=== PATIENT | male | born 1965 | race Hispanic/Latino ===

== ENCOUNTER → 2020-01-09 | Outpatient (CLI) | payer OTHER, MEDICARE | END | disposition home or self-care (01) | LOC: RAH 08:28 | PROVIDERS: ATTEND Internal Medicine Gastroenterology | DX: K76.0 Fatty (change of) liver, not elsewhere classified (principal); R16.0 Hepatomegaly, not elsewhere classified; K76.9 Liver disease, unspecified | CPT/HCPCS: 76700; 93975 ==

== ENCOUNTER → 2020-06-10 | Outpatient (CLI) | payer OTHER, MEDICARE | END | disposition home or self-care (01) | LOC: RAH 10:33 | PROVIDERS: ATTEND Internal Medicine Gastroenterology | DX: Z11.2 Encounter for screening for other bacterial diseases (principal); R10.12 Left upper quadrant pain | CPT/HCPCS: 78264; A9541 ==

== ENCOUNTER 2020-07-11 13:16 | Emergency (ER) | payer OTHER, MEDICARE ==
[2020-07-11 14:07] LABS: BASOPHILS % (AUTO) 0.3 % (0.0-5.0); EOSINOPHILS % (AUTO) 0.3 % (0.0-8.0); HEMATOCRIT 36.5 % (42-54); LYMPHOCYTES % (AUTO) 10.4 % (21.0-51.0); MEAN CORPUSCULAR HEMOGLOBIN 29.3 pg (27.0-33.0); MEAN CORPUSCULAR VOLUME 86.3 fL (79-99); MONOCYTES % (AUTO) 4.4 % (3.0-13.0); PLATELET COUNT (AUTO) 194 K/uL (130-400); RED BLOOD CELL COUNT(AUTO) 4.23 MIL/uL (4.50-6.20); RED CELL DISTRIBUTION WIDTH 13.3 % (11.0-15.5)
[2020-07-11] MEDS ORDERED: DiphenhydrAMINE HCL 50 MG/ML VIAL ONE (14:10)
[2020-07-11] MEDS ORDERED: KETOROLAC 30MG VIAL (30MG/ML) ONE (14:11)
[2020-07-11] MEDS ORDERED: PROCHLORPERAZINE 10MG/2ML INJ ONE (14:11)
[2020-07-11 14:33] LABS: PROTHROMBIN TIME 10.7 SEC (9.6-11.6)
[2020-07-11 14:34] LABS: PARTIAL THROMBOPLASTIN TIME 26.4 SEC (26.3-35.5)
[2020-07-11 14:36] LABS: B-TYPE NATRIURETIC PEPTIDE 17 pg/mL (0-100)
[2020-07-11 14:53] LABS: ALBUMIN 2.8 g/dL (3.5-5.0); BILIRUBIN,TOTAL 0.2 mg/dL (0.2-1.0); CREATININE 1.9 mg/dL (0.5-1.5); POTASSIUM 4.6 mmol/L (3.5-5.1); TOTAL PROTEIN, SERUM 6.8 g/dL (6.0-8.3)
[2020-07-11] MEDS ORDERED: 0.9% NACL 250ML 500 ML IV ONE (15:12)
== END 2020-07-11 16:11 | disposition home or self-care (01) ==
LOC: EDH 13:16
DX: I10 Essential (primary) hypertension (principal); G43.909 Migraine, unspecified, not intractable, without status migrainosus; E11.9 Type 2 diabetes mellitus without complications; E78.5 Hyperlipidemia, unspecified; Z88.6 Allergy status to analgesic agent; Z88.8 Allergy status to other drugs, medicaments and biological substances
CPT/HCPCS: 36415; 70450; 71045; 80053; 83690; 83880; 84484; 85025; 85610; 85730; 93005; 96374; 96375; 99285; J0780; J1200; J1885; J7050

== ENCOUNTER 2022-08-08 07:03 | Day surgery (SDC) | payer OTHER, MEDICARE ==
[2022-08-03 10:24] LABS: BASOPHILS % (AUTO) 0.4 % (0.0-5.0); EOSINOPHILS % (AUTO) 0.6 % (0.0-8.0); HEMATOCRIT 32.7 % (42-54); LYMPHOCYTES % (AUTO) 17.4 % (21.0-51.0); MEAN CORPUSCULAR HEMOGLOBIN 32.2 pg (27.0-33.0); MEAN CORPUSCULAR HGB CONC 34.9 g/dL (32.0-36.0); MEAN CORPUSCULAR VOLUME 92.4 fL (79-99); MONOCYTES % (AUTO) 5.3 % (3.0-13.0); NEUTROPHILS % (AUTO) 75.7 % (40.0-77.0); PLATELET COUNT (AUTO) 167 K/uL (130-400); RED BLOOD CELL COUNT(AUTO) 3.54 MIL/uL (4.50-6.20); RED CELL DISTRIBUTION WIDTH 13.6 % (11.0-15.5); WHITE BLOOD COUNT (AUTO) 8.5 K/uL (4.8-10.8)
[2022-08-03 10:34] LABS: INR 0.93 (0.85-1.15)
[2022-08-03 10:36] LABS: PARTIAL THROMBOPLASTIN TIME 27.9 SEC (26.3-35.5)
[2022-08-03 10:39] VITALS: BP 219/107
[~2022-08-08] VITALS: Ht 177.8 cm; Wt 120.8 kg
[2022-08-08] VITALS (19 sets, daily range): BP systolic 166–189; BP diastolic 94–105
[~2022-08-08 07:03] MED LIST: CETI10TA57 PO; CITA-107 PO; FINA5TAB41 PO; GABA300C PO; INSU100I15 SQ; INSU100V37 SQ; MECL-160 PO; METO25 PO; OMEP40CA21 PO; ONDA4TAB10 PO; SEVE800T27 PO; VITAMIN D PO; ZOLP5TAB8 PO
[2022-08-08] MEDS ORDERED: 0.9% NACL 500ML IV.SOLN 500 ML IV ONE (07:30)
[2022-08-08] MEDS: CEFAZOLIN SODIUM 2 GM VIAL IVPB PRN ×2 (07:46→08:25)
[2022-08-08 07:55] LABS: CREATININE 3.7 mg/dL (0.5-1.5); POTASSIUM 3.9 mmol/L (3.5-5.1)
[2022-08-08] MEDS ORDERED: SUCCINYLCHOLINE CHLORIDE 20 MG/ML 10 ML VIAL ONE (08:19)
[2022-08-08] MEDS ORDERED: ROCURONIUM 10MG/1ML SYR 10 MG/ML ML ONE (08:20)
[2022-08-08] MEDS ORDERED: FENTANYL CITRATE PF 50 MCG/1 ML 2ML VIAL ONE (08:20)
[2022-08-08] MEDS ORDERED: PROPOFOL 10 MG/ML 20ML VIAL IV ONE (08:20)
[2022-08-08] MEDS ORDERED: MIDAZOLAM HCL 1 MG/ML 2ML VIAL ONE (08:20)
[2022-08-08] MEDS ORDERED: PHENYLEPHRINE HCL 10 MG/ML 1ML VIAL IV ONE (08:50)
[2022-08-08] MEDS ORDERED: EPHEDRINE SULFATE 50 MG/ML AMPULE ONE (09:13)
[2022-08-08] MEDS ORDERED: LABETALOL 20MG SYG IV ONE (10:27)
== END 2022-08-08 11:40 | disposition home or self-care (01) ==
LOC: DAH 07:03
PROVIDERS: ATTEND Student in an Organized Health Care Education/Training Program
DX: I12.0 Hypertensive chronic kidney disease with stage 5 chronic kidney disease or end stage renal disease (principal); E11.22 Type 2 diabetes mellitus with diabetic chronic kidney disease; N18.6 End stage renal disease; E78.00 Pure hypercholesterolemia, unspecified; Z88.8 Allergy status to other drugs, medicaments and biological substances; Z79.4 Long term (current) use of insulin; Z79.899 Other long term (current) drug therapy; Z98.890 Other specified postprocedural states; Z20.822 Contact with and (suspected) exposure to COVID-19
CPT/HCPCS: 85025; 85610; 85730; 86850; 86900; 86901; 87426; 36415 ×2; 71045; 93005; 36821; 80048; 82948 ×2; A6260; A4663; J7040; J3010; J0330; J3490; J2250; J2704; J2370; J0690; G0168; A4649 ×2; C1713 ×2; A4215; A4223; A4222; A4221

== ENCOUNTER 2023-03-26 04:33 | Observation (INO) | payer OTHER, MEDICARE ==
[2023-03-26] VITALS (14 sets, daily range): BP systolic 117–179; BP diastolic 71–85; PULSE 74–88; RESP 14–24; TEMP 97.9–98; O2SAT 98
[~2023-03-26] VITALS: Ht 152.4 cm; Wt 117.9 kg
[~2023-03-26 04:33] MED LIST changes: -MECL-160 PO; +MECL-302 PO
[2023-03-26] MEDS ORDERED: HYDRALAZINE 20MG/ML VIAL ONE (04:58)
[2023-03-26] MEDS ORDERED: HYDRALAZINE 20MG/ML VIAL IV ONE (05:00)
[2023-03-26 05:32] LABS: BASOPHILS # (AUTO) 0.04 K/uL (0.00-0.20); BASOPHILS % (AUTO) 0.4 % (0.0-5.0); CREATININE 6.8 mg/dL (0.5-1.5); EOSINOPHILS # (AUTO) 0.07 K/uL (0.00-0.70); EOSINOPHILS % (AUTO) 0.7 % (0.0-8.0); HEMATOCRIT 25.8 % (42-54); IMMATURE GRANULOCYTE ABSOLUTE 0.04 K/uL (0-1); LYMPHOCYTES # (AUTO) 2.2 K/uL (1.0-4.8); LYMPHOCYTES % (AUTO) 21.8 % (21.0-51.0); MEAN CORPUSCULAR HEMOGLOBIN 31.9 pg (27.0-33.0); MEAN CORPUSCULAR HGB CONC 35.3 g/dL (32.0-36.0); MEAN CORPUSCULAR VOLUME 90.5 fL (79-99); MONOCYTES # (AUTO) 0.5 K/uL (0.1-1.0); MONOCYTES % (AUTO) 5.1 % (3.0-13.0); NEUTROPHILS # (AUTO) 7.2 K/uL (1.8-7.7); NEUTROPHILS % (AUTO) 71.6 % (40.0-77.0); PLATELET COUNT (AUTO) 164 K/uL (130-400); POTASSIUM 3.9 mmol/L (3.5-5.1); RED BLOOD CELL COUNT(AUTO) 2.85 MIL/uL (4.50-6.20); RED CELL DISTRIBUTION WIDTH 12.7 % (11.0-15.5)
[2023-03-26 05:37] LABS: ALBUMIN 2.9 g/dL (3.5-5.0); BILIRUBIN,TOTAL 0.4 mg/dL (0.2-1.0); TOTAL PROTEIN, SERUM 7.5 g/dL (6.0-8.3)
[2023-03-26 05:43] LABS: SARS-CoV-2, RNA, NAAT NEGATIVE SARS CoV-2 (NEGATIVE)
[2023-03-26 05:45] LABS: INR 1.64 (0.85-1.15); PROTHROMBIN TIME 18.4 SEC (9.6-11.6)
[2023-03-26 05:46] LABS: INFLUENZA TYPE A Negative For Type A (NEGATIVE); INFLUENZA TYPE B Negative For Type B (NEGATIVE)
[2023-03-26 05:48] LABS: B-TYPE NATRIURETIC PEPTIDE 260 pg/mL (0-100)
[2023-03-26 07:06] LABS: ADD UA MICROSCOPIC YES
[2023-03-26] MEDS ORDERED: HYDRALAZINE 20MG/ML VIAL IV PRN (07:30)
[2023-03-26 08:07] LABS: APPEARANCE,URINE CLEAR (CLEAR); BILIRUBIN,URINE NEGATIVE (NEGATIVE); COLOR,URINE LIGHT-YELLOW (YELLOW); GLUCOSE, URINE (UA) 200 mg/dL (NEGATIVE); KETONES,URINE NEGATIVE (NEGATIVE); LEUKOCYTE ESTERASE ,URINE NEGATIVE Leu/uL (NEGATIVE); NITRATE,URINE NEGATIVE (NEGATIVE); OCCULT BLOOD,URINE MODERATE (NEGATIVE); PH,URINE 7.5 (5.0-8.0); PROTEIN,URINE 600 mg/dL (NEGATIVE); UROBILINOGEN,URINE 0.2 mg/dL (0.2-1.0)
[2023-03-26 08:08] LABS: RBC,URINE 0-1 /HPF (0-1); SQUAMOUS EPITHELIAL CELL,UR RARE /HPF (0-2); WBC,URINE 0-1 /HPF (0-1)
[2023-03-26] MEDS: METOPROLOL TARTRATE 25 MG TAB PO SCH ×2 (08:31→21:27)
[2023-03-26] MEDS: LOSARTAN 50 MG TABLET PO SCH ×2 (08:31→21:27)
[2023-03-26] MEDS ORDERED: SEMA1PEN3 SQ (09:23)
[2023-03-26] MEDS ORDERED: FINA-37 PO (09:23)
[2023-03-26] MEDS ORDERED: LACT10SO9 PO (09:23)
[2023-03-26] MEDS ORDERED: ROSU10TA22 PO (09:23)
[2023-03-26] MEDS ORDERED: LOSA50TA64 PO (09:23)
[2023-03-26] MEDS ORDERED: INSU100V37 SQ (09:23)
[2023-03-26] MEDS: INSULIN HUMULIN R 100 UNIT/ML 3ML SQ SCH ×3 (10:50→21:28)
[2023-03-26] MEDS: INSULIN GLARGINE 100 UNITS/ML 10 ML VIAL SQ SCH (10:53)
[2023-03-26 11:28] LABS: INR < 0.93 (0.85-1.15); PROTHROMBIN TIME 10.7 SEC (9.6-11.6)
[2023-03-26 11:29] LABS: PARTIAL THROMBOPLASTIN TIME 28.9 SEC (26.3-35.5)
[2023-03-27] VITALS (19 sets, daily range): BP systolic 86–266; BP diastolic 57–87; PULSE 79–90; RESP 17–22; TEMP 98.7–98.8; O2SAT 97
[2023-03-27 05:14] LABS: HEMATOCRIT 24.4 % (42-54); MEAN CORPUSCULAR HEMOGLOBIN 32.6 pg (27.0-33.0); MEAN CORPUSCULAR HGB CONC 35.7 g/dL (32.0-36.0); MEAN CORPUSCULAR VOLUME 91.4 fL (79-99); RED BLOOD CELL COUNT(AUTO) 2.67 MIL/uL (4.50-6.20); RED CELL DISTRIBUTION WIDTH 12.9 % (11.0-15.5); WHITE BLOOD COUNT (AUTO) 8.8 K/uL (4.8-10.8)
[2023-03-27 05:25] LABS: CREATININE 6.7 mg/dL (0.5-1.5); POTASSIUM 4.2 mmol/L (3.5-5.1)
[2023-03-27 05:38] LABS: ALBUMIN 2.6 g/dL (3.5-5.0); BILIRUBIN,TOTAL 0.4 mg/dL (0.2-1.0); PHOSPHORUS 7.2 mg/dL (2.5-4.9); THYROID STIMULATING HORMONE 1.68 uIU/mL (0.36-3.74); TOTAL PROTEIN, SERUM 6.6 g/dL (6.0-8.3); URIC ACID 4.8 mg/dL (2.6-7.2)
[2023-03-27] MEDS: INSULIN HUMULIN R 100 UNIT/ML 3ML SQ SCH ×3 (05:54→17:01)
[2023-03-27] MEDS ORDERED: CETIRIZINE HCL 5 MG TABLET PO SCH (09:00)
[2023-03-27] MEDS ORDERED: Vitamin B Complex/Vit C/Folic Acid PO SCH (09:00)
[2023-03-27] MEDS: INSULIN GLARGINE 100 UNITS/ML 10 ML VIAL SQ SCH (09:00)
[2023-03-27] MEDS ORDERED: NON-FORMULARY MEDICATION 1 EACH (Omeprazole 40 MG) PO SCH (09:00)
[2023-03-27] MEDS ORDERED: LACTULOSE 20 GM/30 ML UDCUP PO PRN (12:00)
[2023-03-27 12:23] LABS: RETICULOCYTE % (AUTO) 2.22 % (0.42-2.23)
[2023-03-27] MEDS ORDERED: IRON SUCROSE COMPLEX 500 MG in 0.9%NACL 50ML 50 ML IV ONE (12:30)
[2023-03-27] MEDS ORDERED: EPOETIN ALFA-EPBX (NON-ESRD) 10,000 UNIT/ML VIAL SQ ONE ×2 (12:30→17:00)
[2023-03-27 12:42] LABS: % IRON SATURATION 26.1 % (30-44)
[2023-03-27] MEDS ORDERED: ROSU20TA73 PO (12:42)
[2023-03-27] MEDS ORDERED: INSU100I15 SQ (12:42)
[2023-03-27] MEDS: SEVELAMER HCL 800 MG TABLET PO SCH ×2 (14:00→14:19)
[2023-03-27] MEDS: LOSARTAN 50 MG TABLET PO SCH (14:16)
[2023-03-27] MEDS: METOPROLOL TARTRATE 25 MG TAB PO SCH (14:16)
[2023-03-27 15:48] LABS: HEPATITIS B SURFACE ANTIGEN Non-Reactive (Nonreactive)
[2023-03-27] MEDS ORDERED: GABAPENTIN 300 MG CAPSULE PO SCH (21:00)
[2023-03-27] MEDS ORDERED: NON-FORMULARY MEDICATION 1 EACH (Cetirizine HCl 10 MG) PO SCH (21:00)
[2023-03-27] MEDS ORDERED: ROSUVASTATIN CALCIUM 15 MG PO SCH (21:00)
[2023-03-27] MEDS ORDERED: ATORVASTATIN 20 MG TABLET PO SCH (21:00)
[2023-03-28] MEDS ORDERED: FINASTERIDE 5 MG TABLET PO SCH (09:00)
[2023-03-28] MEDS ORDERED: IRON SUCROSE COMPLEX 500 MG in 0.9% NACL 250ML 250 ML IVP SCH (09:00)
== END 2023-03-27 19:47 | disposition home or self-care (01) ==
LOC: EDH 04:33 → INTOOBSV 07:19 → EDHIP 07:19 → 2AH 17:32
PROVIDERS: ADMIT Internal Medicine; ATTEND Internal Medicine
DX: I16.0 Hypertensive urgency (principal); Z20.822 Contact with and (suspected) exposure to COVID-19; E87.70 Fluid overload, unspecified; I13.2 Hypertensive heart and chronic kidney disease with heart failure and with stage 5 chronic kidney disease, or end stage renal disease; I50.9 Heart failure, unspecified; E11.22 Type 2 diabetes mellitus with diabetic chronic kidney disease; N18.6 End stage renal disease; I25.10 Atherosclerotic heart disease of native coronary artery without angina pectoris; J81.1 Chronic pulmonary edema; E78.5 Hyperlipidemia, unspecified; D50.9 Iron deficiency anemia, unspecified; N40.0 Benign prostatic hyperplasia without lower urinary tract symptoms; D68.9 Coagulation defect, unspecified; R79.89 Other specified abnormal findings of blood chemistry; N25.81 Secondary hyperparathyroidism of renal origin; E66.01 Morbid (severe) obesity due to excess calories; Z68.39 Body mass index [BMI] 39.0-39.9, adult; Z88.5 Allergy status to narcotic agent; Z88.8 Allergy status to other drugs, medicaments and biological substances; Z79.4 Long term (current) use of insulin; Z99.2 Dependence on renal dialysis; Z79.899 Other long term (current) drug therapy; Z98.890 Other specified postprocedural states
CPT/HCPCS: 96374; 93005; 99285; 83036; 84443 ×2; 82550; 84484 ×3; 80053 ×2; 83880; 85025; 85384; 85610 ×2; 85730 ×2; 87804 ×2; 82948 ×7; 86706; 87340; 81001; 36415 ×2; 87635; 71045; 90935 ×2; 96372; 83540; 83550; 84100; 84550; 82728; 85027; 85045; 82607; 82746; 93306; 93356; C9803; J0360; G0378 ×6; Q5106; J1756; J7050; G0257

== ENCOUNTER 2023-08-27 19:09 | Inpatient (IN) | payer OTHER, MEDICARE ==
[~2023-08-27] VITALS: Ht 177.8 cm; Wt 122.0 kg
[~2023-08-27 19:09] MED LIST changes: +AMLO5TAB4 PO; +HYDR25 PO; +LACT10SO9 PO; +LOSA50TA64 PO; +MECL-160 PO; -MECL-302 PO; +ROSU20TA73 PO; +SEMA1PEN3 SQ
[2023-08-27 19:43] LABS: BASOPHILS # (AUTO) 0.04 K/uL (0.00-0.20); BASOPHILS % (AUTO) 0.4 % (0.0-5.0); EOSINOPHILS # (AUTO) 0.02 K/uL (0.00-0.70); EOSINOPHILS % (AUTO) 0.2 % (0.0-8.0); HEMATOCRIT 24.7 % (42-54); IMMATURE GRANULOCYTE ABSOLUTE 0.04 K/uL (0-1); LYMPHOCYTES # (AUTO) 0.6 K/uL (1.0-4.8); LYMPHOCYTES % (AUTO) 7.2 % (21.0-51.0); MEAN CORPUSCULAR HEMOGLOBIN 34.4 pg (27.0-33.0); MEAN CORPUSCULAR HGB CONC 34.8 g/dL (32.0-36.0); MEAN CORPUSCULAR VOLUME 98.8 fL (79-99); MONOCYTES # (AUTO) 0.4 K/uL (0.1-1.0); MONOCYTES % (AUTO) 4.5 % (3.0-13.0); NEUTROPHILS # (AUTO) 7.8 K/uL (1.8-7.7); NEUTROPHILS % (AUTO) 87.3 % (40.0-77.0); PLATELET COUNT (AUTO) 133 K/uL (130-400); RED CELL DISTRIBUTION WIDTH 13.3 % (11.0-15.5)
[2023-08-27 20:01] LABS: POTASSIUM 4.8 mmol/L (3.5-5.1)
[2023-08-27 20:02] LABS: COVID19 (SARS ANTIGEN RAPID) PRESUMPTIVE NEGATIVE (NEGATIVE); INFLUENZA TYPE A Negative For Type A (NEGATIVE); INFLUENZA TYPE B Negative For Type B (NEGATIVE)
[2023-08-27 20:04] LABS: CREATININE 8.7 mg/dL (0.5-1.5)
[2023-08-27 21:38] LABS: INR <= 0.93 (0.85-1.15); PROTHROMBIN TIME 10.7 SEC (9.6-11.6)
[2023-08-27 21:40] LABS: PARTIAL THROMBOPLASTIN TIME 28.7 SEC (26.3-35.5)
[2023-08-28] VITALS (60 sets, daily range): BP systolic 129–165; BP diastolic 59–88; PULSE 77–90; RESP 4–29; TEMP 98.2–98.3; O2SAT 97–99
[2023-08-28] MEDS ORDERED: ACETAMINOPHEN 325 MG TAB PO PRN ×2
[2023-08-28] MEDS ORDERED: ONDANSETRON 4MG INJ IV PRN
[2023-08-28] MEDS: NITROGLYCERIN 1GM OINT 1 INCH/1GM TD SCH (01:29)
[2023-08-28] MEDS: IPRATROPIUM/ALBUTEROL SULFATE 3 ML SOLUTION IH SCH (01:59)
[2023-08-28 03:13] LABS: APPEARANCE,URINE CLEAR (CLEAR); BILIRUBIN,URINE NEGATIVE (NEGATIVE); COLOR,URINE LIGHT-YELLOW (YELLOW); GLUCOSE, URINE (UA) TRACE mg/dL (NEGATIVE); KETONES,URINE NEGATIVE (NEGATIVE); LEUKOCYTE ESTERASE ,URINE NEGATIVE Leu/uL (NEGATIVE); NITRATE,URINE NEGATIVE (NEGATIVE); OCCULT BLOOD,URINE SMALL (NEGATIVE); PH,URINE 7.5 (5.0-8.0); PROTEIN,URINE 300 mg/dL (NEGATIVE); UROBILINOGEN,URINE 0.2 mg/dL (0.2-1.0)
[2023-08-28 03:16] LABS: ADD UA MICROSCOPIC YES
[2023-08-28] MEDS: HYDRALAZINE 20MG/ML VIAL IV PRN (03:46)
[2023-08-28 06:23] LABS: BASOPHILS # (AUTO) 0.04 K/uL (0.00-0.20); BASOPHILS % (AUTO) 0.5 % (0.0-5.0); EOSINOPHILS # (AUTO) 0.05 K/uL (0.00-0.70); EOSINOPHILS % (AUTO) 0.6 % (0.0-8.0); IMMATURE GRANULOCYTE ABSOLUTE 0.04 K/uL (0-1); LYMPHOCYTES # (AUTO) 1.6 K/uL (1.0-4.8); MEAN CORPUSCULAR HEMOGLOBIN 33.1 pg (27.0-33.0); MEAN CORPUSCULAR HGB CONC 33.8 g/dL (32.0-36.0); MONOCYTES # (AUTO) 0.5 K/uL (0.1-1.0); MONOCYTES % (AUTO) 5.2 % (3.0-13.0); NEUTROPHILS # (AUTO) 6.5 K/uL (1.8-7.7); NEUTROPHILS % (AUTO) 75.2 % (40.0-77.0); PLATELET COUNT (AUTO) 155 K/uL (130-400); RED BLOOD CELL COUNT(AUTO) 2.45 MIL/uL (4.50-6.20); RED CELL DISTRIBUTION WIDTH 13.2 % (11.0-15.5); WHITE BLOOD COUNT (AUTO) 8.6 K/uL (4.8-10.8)
[2023-08-28 06:29] LABS: HEMOGLOBIN A1C 6.6 % (4.0-6.0)
[2023-08-28] MEDS ORDERED: FURO80TA3 PO (06:35)
[2023-08-28] MEDS ORDERED: METO25TA6 PO (06:35)
[2023-08-28 06:59] LABS: ALBUMIN 2.9 g/dL (3.5-5.0); BILIRUBIN,TOTAL 0.4 mg/dL (0.2-1.0); MAGNESIUM 1.8 mg/dL (1.80-2.40); POTASSIUM 4.8 mmol/L (3.5-5.1); TOTAL PROTEIN, SERUM 6.8 g/dL (6.0-8.3)
[2023-08-28 07:06] LABS: CREATININE 9.4 mg/dL (0.5-1.5)
[2023-08-28] MEDS ORDERED: MECLIZINE HCL 25 MG TABLET PO PRN (09:00)
[2023-08-28] MEDS: FINASTERIDE 5 MG TABLET PO SCH (09:15)
[2023-08-28] MEDS: FAMOTIDINE 20MG TAB PO SCH (09:15)
[2023-08-28] MEDS: ASPIRIN 81 MG EC TAB PO SCH (09:15)
[2023-08-28] MEDS: SEVELAMER HCL 800 MG TABLET PO SCH (09:15)
[2023-08-28] MEDS ORDERED: DEXTROSE 50%-WATER 50 ML DISP.SYRIN IV PRN (13:00)
[2023-08-28] MEDS ORDERED: GLUCAGON 1MG KIT 1 MG ML IM PRN (13:00)
[2023-08-28] MEDS: LOSARTAN 50 MG TABLET PO SCH (13:06)
[2023-08-28] MEDS: METOPROLOL TARTRATE 25 MG TAB PO SCH (13:06)
[2023-08-28] MEDS: AMLODIPINE 5 MG TAB PO SCH (13:06)
[2023-08-28] MEDS: HYDRALAZINE 25MG TABLET PO SCH (13:07)
[2023-08-28] MEDS: CLOPIDOGREL 75MG TAB PO SCH (15:45)
[2023-08-28] MEDS: INSULIN HUMULIN R 100 UNIT/ML 3ML SQ SCH (15:47)
[2023-08-28 17:04] LABS: HEPATITIS B SURFACE ANTIGEN Non-Reactive (Nonreactive)
[2023-08-28] MEDS: CETIRIZINE HCL 5 MG TABLET PO SCH (21:07)
[2023-08-28] MEDS: GABAPENTIN 300 MG CAPSULE PO SCH (21:08)
[2023-08-28] MEDS: ATORVASTATIN 40 MG TABLET PO SCH (21:08)
[2023-08-28] MEDS: IRON SUCROSE COMPLEX 300 MG in 0.9% NACL 250ML 250 ML IV ONE (21:26)
[2023-08-28] MEDS ORDERED: COMPOUND IV REFRIGERATED 1 EACH IVSOLN MISC PRN (21:30)
[2023-08-28] MEDS: EPOETIN ALFA-EPBX (NON-ESRD) 10,000 UNIT/ML VIAL SQ SCH (22:00)
[2023-08-29] VITALS (15 sets, daily range): BP systolic 119–152; BP diastolic 64–89; PULSE 71–88; RESP 17–20; O2SAT 97–100
[2023-08-29] MEDS ORDERED: FUROSEMIDE 80 MG TABLET PO SCH (09:00)
[2023-08-29 12:22] LABS: HEPATITIS B SURFACE ANTIBODY Positive (Reactive)
[2023-08-29 12:23] LABS: HEPATITIS B CORE AB TOTAL Non-Reactive (Nonreactive)
[2023-08-30] VITALS (24 sets, daily range): BP systolic 119–168; BP diastolic 67–91; PULSE 71–89; RESP 17–20; TEMP 97.5–97.8; O2SAT 98–100
[2023-08-30 05:18] LABS: BASOPHILS # (AUTO) 0.05 K/uL (0.00-0.20); BASOPHILS % (AUTO) 0.7 % (0.0-5.0); EOSINOPHILS # (AUTO) 0.07 K/uL (0.00-0.70); EOSINOPHILS % (AUTO) 0.9 % (0.0-8.0); HEMATOCRIT 22.4 % (42-54); IMMATURE GRANULOCYTE ABSOLUTE 0.02 K/uL (0-1); LYMPHOCYTES # (AUTO) 1.7 K/uL (1.0-4.8); MEAN CORPUSCULAR HEMOGLOBIN 33.6 pg (27.0-33.0); MEAN CORPUSCULAR HGB CONC 33.9 g/dL (32.0-36.0); MEAN CORPUSCULAR VOLUME 99.1 fL (79-99); MONOCYTES # (AUTO) 0.4 K/uL (0.1-1.0); MONOCYTES % (AUTO) 5.7 % (3.0-13.0); NEUTROPHILS # (AUTO) 5.2 K/uL (1.8-7.7); NEUTROPHILS % (AUTO) 69.4 % (40.0-77.0); PLATELET COUNT (AUTO) 143 K/uL (130-400); RED BLOOD CELL COUNT(AUTO) 2.26 MIL/uL (4.50-6.20); RED CELL DISTRIBUTION WIDTH 13.2 % (11.0-15.5); WHITE BLOOD COUNT (AUTO) 7.4 K/uL (4.8-10.8)
[2023-08-30 05:35] LABS: MAGNESIUM 1.9 mg/dL (1.80-2.40); PHOSPHORUS 7.3 mg/dL (2.5-4.9); POTASSIUM 4.7 mmol/L (3.5-5.1)
[2023-08-30] MEDS: REGADENOSON 0.4 MG/5 ML PF SYG IVP SCH (07:00)
== END 2023-08-30 18:56 | disposition home or self-care (01) | DRG 205 ==
LOC: EDH 19:09 → EDHIP 23:43 → 2BH 08-28 05:24 → 3DH 08-28 17:30
PROVIDERS: ADMIT Hospitalist; ATTEND Hospitalist
PROC: 5A1D70Z Performance of Urinary Filtration, Intermittent, Less than 6 Hours Per Day (ICD-10-PCS; 2023-08-28)
PROC: 4A02XM4 Measurement of Cardiac Total Activity, External Approach (ICD-10-PCS; principal; 2023-08-29)
PROC: 3E073KZ Introduction of Other Diagnostic Substance into Coronary Artery, Percutaneous Approach (ICD-10-PCS; 2023-08-29)
PROC: 5A1D70Z Performance of Urinary Filtration, Intermittent, Less than 6 Hours Per Day (ICD-10-PCS; 2023-08-30)
DX: M94.0 Chondrocostal junction syndrome [Tietze] (principal); N18.6 End stage renal disease; I12.0 Hypertensive chronic kidney disease with stage 5 chronic kidney disease or end stage renal disease; R06.02 Shortness of breath; R07.89 Other chest pain; I25.10 Atherosclerotic heart disease of native coronary artery without angina pectoris; D63.1 Anemia in chronic kidney disease; J45.909 Unspecified asthma, uncomplicated; E78.00 Pure hypercholesterolemia, unspecified; Z20.822 Contact with and (suspected) exposure to COVID-19; E11.22 Type 2 diabetes mellitus with diabetic chronic kidney disease; Z99.2 Dependence on renal dialysis; Z80.8 Family history of malignant neoplasm of other organs or systems; Z82.49 Family history of ischemic heart disease and other diseases of the circulatory system; Z86.73 Personal history of transient ischemic attack (TIA), and cerebral infarction without residual deficits; Z87.01 Personal history of pneumonia (recurrent); Z83.3 Family history of diabetes mellitus; Z82.3 Family history of stroke; Z82.5 Family history of asthma and other chronic lower respiratory diseases
CPT/HCPCS: 36415; 71045; 78452; 80048; 80053; 80061; 81001; 82550; 82948; 83036; 83735; 83880; 84100; 84484; 85025; 85610; 85730; 86704; 86706; 87340; 87426; 87804; 87880; 90935; 93005; 93017; 93306; 94640; 94664; 96374; A9500; G0378; J0360; J1756; J2785; J7050; Q5106

== ENCOUNTER → 2023-10-06 | Outpatient (CLI) | payer OTHER, MEDICARE ==
[~2023-10-06] MED LIST changes: +FURO80TA3 PO; -MECL-160 PO; +MECL-302 PO; -METO25 PO; +METO25TA6 PO
[2023-10-06 10:41] LABS: CREATININE 8.9 mg/dL (0.5-1.3)
== END | disposition home or self-care (01) ==
LOC: RAH 07:52
PROVIDERS: ATTEND Internal Medicine Interventional Cardiology
DX: I65.23 Occlusion and stenosis of bilateral carotid arteries (principal); M54.41 Lumbago with sciatica, right side
CPT/HCPCS: 36415; 72100; 82565; 84520

== ENCOUNTER → 2023-10-10 | Outpatient (CLI) | payer OTHER, MEDICARE ==
[~2023-10-10] MED LIST changes: +ALPR0.5T11 PO; +ASPI-1005 PO; +CLOP75TA32 PO; +DICY20TA3 PO; +FOLI0.4T6 PO; +GABA-534 PO; +HYDR50TA37 PO; +IOHEXOL-350 75 ML VIAL IV ONE; +METO50TA18 PO; +ONDA-243 PO; -ONDA4TAB10 PO; +ROSU40TA70 PO; +TERB250T89 PO; +TIRZ7.5P SQ
== END | disposition home or self-care (01) ==
LOC: RAH 08:52
PROVIDERS: ATTEND Internal Medicine Cardiovascular Disease
DX: I65.23 Occlusion and stenosis of bilateral carotid arteries (principal); M47.812 Spondylosis without myelopathy or radiculopathy, cervical region
CPT/HCPCS: 70498; Q9967

== ENCOUNTER 2023-10-31 10:22 | Observation (INO) | payer OTHER, MEDICARE ==
[~2023-10-31] VITALS: Ht 170.2 cm; Wt 122.8 kg
[~2023-10-31 10:22] MED LIST changes: -ALPR0.5T11 PO; -ASPI-1005 PO; -CLOP75TA32 PO; -DICY20TA3 PO; -FOLI0.4T6 PO; -GABA-534 PO; -HYDR50TA37 PO; -IOHEXOL-350 75 ML VIAL IV ONE; -METO50TA18 PO; -ONDA-243 PO; +ONDA4TAB10 PO; -ROSU40TA70 PO; -TERB250T89 PO; -TIRZ7.5P SQ
[2023-10-31 11:21] LABS: BASOPHILS # (AUTO) 0.04 K/uL (0.00-0.20); BASOPHILS % (AUTO) 0.5 % (0.0-5.0); EOSINOPHILS # (AUTO) 0.03 K/uL (0.00-0.70); EOSINOPHILS % (AUTO) 0.4 % (0.0-8.0); HEMATOCRIT 25.1 % (42-54); IMMATURE GRANULOCYTE ABSOLUTE 0.04 K/uL (0-1); LYMPHOCYTES # (AUTO) 0.6 K/uL (1.0-4.8); LYMPHOCYTES % (AUTO) 7.2 % (21.0-51.0); MEAN CORPUSCULAR HEMOGLOBIN 32.9 pg (27.0-33.0); MEAN CORPUSCULAR HGB CONC 33.5 g/dL (32.0-36.0); MEAN CORPUSCULAR VOLUME 98.4 fL (79-99); MONOCYTES # (AUTO) 0.5 K/uL (0.1-1.0); NEUTROPHILS % (AUTO) 85.4 % (40.0-77.0); PLATELET COUNT (AUTO) 114 K/uL (130-400); RED BLOOD CELL COUNT(AUTO) 2.55 MIL/uL (4.50-6.20); RED CELL DISTRIBUTION WIDTH 13.3 % (11.0-15.5); WHITE BLOOD COUNT (AUTO) 8.2 K/uL (4.8-10.8)
[2023-10-31 11:27] LABS: CREATININE 7.1 mg/dL (0.5-1.3); INR <= 0.93 (0.85-1.15); POTASSIUM 5.1 mmol/L (3.5-5.1); PROTHROMBIN TIME 10.9 SEC (9.6-11.6)
[2023-10-31 11:29] LABS: PARTIAL THROMBOPLASTIN TIME 29.1 SEC (26.3-35.5)
[2023-10-31 11:32] LABS: BILIRUBIN,TOTAL 0.5 mg/dL (0.2-1.0); TOTAL PROTEIN, SERUM 6.8 g/dL (6.0-8.3)
[2023-10-31] MEDS ORDERED: ACETAMINOPHEN 500 MG TABLET PO PRN (13:30)
[2023-10-31] MEDS ORDERED: IOHEXOL-350 75 ML VIAL IV ONE (13:33)
[2023-10-31] MEDS ORDERED: METO50TA18 PO (14:54)
[2023-10-31] MEDS ORDERED: ROSU40TA21 PO (14:54)
[2023-10-31] MEDS ORDERED: IPRATROPIUM/ALBUTEROL SULFATE 3 ML SOLUTION IH PRN (15:30)
[2023-10-31 16:13] VITALS: PULSE 74; RESP 18; O2SAT 98
[2023-10-31] MEDS: INSULIN HUMULIN R 100 UNIT/ML 3ML SQ SCH (16:28)
[2023-10-31] MEDS: METOPROLOL TARTRATE 50 MG TAB PO SCH (21:11)
[2023-10-31] MEDS: ATORVASTATIN 40 MG TABLET PO SCH (21:11)
[2023-10-31] MEDS: LOSARTAN 50 MG TABLET PO SCH (21:11)
[2023-10-31 23:30] VITALS: BP 155/73; PULSE 74; RESP 18
[2023-11-01] VITALS (23 sets, daily range): BP systolic 124–160; BP diastolic 66–78; PULSE 71–91; RESP 16–20; TEMP 97.5–97.8; O2SAT 97–98
[2023-11-01] MEDS ORDERED: GLUCAGON 1MG KIT 1 MG ML IM PRN (07:00)
[2023-11-01] MEDS ORDERED: DEXTROSE 50%-WATER 50 ML DISP.SYRIN IV PRN (07:00)
[2023-11-01 07:10] LABS: BASOPHILS # (AUTO) 0.02 K/uL (0.00-0.20); BASOPHILS % (AUTO) 0.3 % (0.0-5.0); EOSINOPHILS # (AUTO) 0.04 K/uL (0.00-0.70); EOSINOPHILS % (AUTO) 0.5 % (0.0-8.0); HEMATOCRIT 24.3 % (42-54); IMMATURE GRANULOCYTE ABSOLUTE 0.03 K/uL (0-1); LYMPHOCYTES # (AUTO) 0.9 K/uL (1.0-4.8); MEAN CORPUSCULAR HEMOGLOBIN 33.6 pg (27.0-33.0); MEAN CORPUSCULAR HGB CONC 32.9 g/dL (32.0-36.0); MEAN CORPUSCULAR VOLUME 102.1 fL (79-99); MONOCYTES # (AUTO) 0.6 K/uL (0.1-1.0); MONOCYTES % (AUTO) 7.5 % (3.0-13.0); NEUTROPHILS # (AUTO) 5.9 K/uL (1.8-7.7); NEUTROPHILS % (AUTO) 79.3 % (40.0-77.0); PLATELET COUNT (AUTO) 97 K/uL (130-400); RED BLOOD CELL COUNT(AUTO) 2.38 MIL/uL (4.50-6.20); RED CELL DISTRIBUTION WIDTH 13.2 % (11.0-15.5); WHITE BLOOD COUNT (AUTO) 7.5 K/uL (4.8-10.8)
[2023-11-01 07:21] LABS: POTASSIUM 5.6 mmol/L (3.5-5.1)
[2023-11-01 07:29] LABS: CREATININE 8.5 mg/dL (0.5-1.3)
[2023-11-01] MEDS: ASPIRIN 81MG CHEW TAB PO SCH (09:36)
[2023-11-01] MEDS ORDERED: EPOETIN ALFA-EPBX (NON-ESRD) 10,000 UNIT/ML VIAL SQ ONE (10:30)
[2023-11-01] MEDS ORDERED: ASPI-1005 PO (12:54)
[2023-11-02 22:55] LABS: HEPATITIS B CORE AB TOTAL Non-Reactive (Nonreactive); HEPATITIS B SURFACE ANTIBODY Positive (Reactive); HEPATITIS B SURFACE ANTIGEN Non-Reactive (Nonreactive)
== END 2023-11-01 18:14 | disposition home or self-care (01) ==
LOC: EDH 10:22 → INTOOBSV 12:51 → EDHIP 12:51 → 2AH 23:03
PROVIDERS: ADMIT Internal Medicine; ATTEND Internal Medicine
DX: R55 Syncope and collapse (principal); R20.0 Anesthesia of skin; I12.0 Hypertensive chronic kidney disease with stage 5 chronic kidney disease or end stage renal disease; E11.22 Type 2 diabetes mellitus with diabetic chronic kidney disease; N18.6 End stage renal disease; E87.5 Hyperkalemia; I25.10 Atherosclerotic heart disease of native coronary artery without angina pectoris; D69.6 Thrombocytopenia, unspecified; E78.5 Hyperlipidemia, unspecified; R79.89 Other specified abnormal findings of blood chemistry; J45.909 Unspecified asthma, uncomplicated; Z88.5 Allergy status to narcotic agent; Z88.8 Allergy status to other drugs, medicaments and biological substances; Z79.4 Long term (current) use of insulin; Z99.2 Dependence on renal dialysis
CPT/HCPCS: 70450; 99285; 83036; 84443; 84484 ×3; 80053; 85025 ×2; 85610; 85730; 82948 ×8; 83605; 36415 ×2; 71045; 70496; 70498; 93356; 93308; 70551; 97161; 97530 ×2; 92522; 92610; 93005; 80048; 86706; 87340; 86704; 97116; 90935; Q9967; G0378 ×2; Q5106; G0257

== ENCOUNTER 2024-03-16 02:35 | Observation (INO) | payer OTHER, MEDICARE ==
[2024-03-16] VITALS (15 sets, daily range): BP systolic 135–173; BP diastolic 72–89; PULSE 78–88; RESP 16–20; TEMP 97.6–98.1; O2SAT 95–98
[~2024-03-16] VITALS: Ht 177.8 cm; Wt 119.3 kg
[~2024-03-16 02:35] MED LIST changes: +ACET-66 PO; +ALPR0.5T11 PO; -AMLO5TAB4 PO; +ATOR40TA69 PO; +BACL10TA PO; +BISA-189 PO; +CARV6.25 PO; +CYCL10TA16 PO; +DICY20TA3 PO; +DOCU100T PO; +FOLATE PO; +FOLI0.4T6 PO; +FOLI0.8T22 PO; +GABA-534 PO; -GABA300C PO; -HYDR25 PO; +HYDR50TA37 PO; +METH4TAB15 PO; -METO25TA6 PO; +METO50TA18 PO; +ONDA-243 PO; -ONDA4TAB10 PO; -ROSU20TA73 PO; +SACU1TAB PO; -SEMA1PEN3 SQ; +TAMS-1 PO; +TERB250T89 PO; +TIRZ7.5P SQ
[2024-03-16 03:18] LABS: CREATININE 5.9 mg/dL (0.5-1.3)
[2024-03-16 03:19] LABS: BASOPHILS # (AUTO) 0.04 K/uL (0.00-0.20); BASOPHILS % (AUTO) 0.5 % (0.0-5.0); EOSINOPHILS # (AUTO) 0.07 K/uL (0.00-0.70); EOSINOPHILS % (AUTO) 0.9 % (0.0-8.0); HEMATOCRIT 28.8 % (42-54); IMMATURE GRANULOCYTE ABSOLUTE 0.03 K/uL (0-1); LYMPHOCYTES # (AUTO) 0.7 K/uL (1.0-4.8); LYMPHOCYTES % (AUTO) 9.9 % (21.0-51.0); MEAN CORPUSCULAR HEMOGLOBIN 31.9 pg (27.0-33.0); MEAN CORPUSCULAR VOLUME 96.6 fL (79-99); MONOCYTES # (AUTO) 0.6 K/uL (0.1-1.0); MONOCYTES % (AUTO) 7.4 % (3.0-13.0); NEUTROPHILS % (AUTO) 80.9 % (40.0-77.0); PLATELET COUNT (AUTO) 142 K/uL (130-400); RED BLOOD CELL COUNT(AUTO) 2.98 MIL/uL (4.50-6.20); RED CELL DISTRIBUTION WIDTH 16.8 % (11.0-15.5); WHITE BLOOD COUNT (AUTO) 7.4 K/uL (4.8-10.8)
[2024-03-16] MEDS: acetaMINOPHEN 500 MG TABLET PO ONE (04:26)
[2024-03-16] MEDS: HYDROcodone/APAP 5/325 1 TAB TABLET PO ONE (05:01)
[2024-03-16] MEDS ORDERED: NITROGLYCERIN 0.4 MG SL TAB SL PRN (05:30)
[2024-03-16] MEDS ORDERED: GLUCAGON 1MG KIT 1 MG ML IM PRN (05:30)
[2024-03-16] MEDS ORDERED: DEXTROSE 50%-WATER 50 ML DISP.SYRIN IV PRN (05:30)
[2024-03-16] MEDS ORDERED: ondanSETRON 4MG INJ IV PRN (05:30)
[2024-03-16] MEDS ORDERED: acetaMINOPHEN 325 MG TAB PO PRN (05:30)
[2024-03-16] MEDS: hydrALAZine 20MG/ML VIAL IV PRN (06:40)
[2024-03-16] MEDS: INSULIN humuLIN R 100 UNIT/ML 3ML SQ SCH (07:30)
[2024-03-16] MEDS: FAMOTIDINE 20MG TAB PO SCH (08:02)
[2024-03-16 08:07] LABS: BASOPHILS # (AUTO) 0.04 K/uL (0.00-0.20); BASOPHILS % (AUTO) 0.5 % (0.0-5.0); EOSINOPHILS # (AUTO) 0.07 K/uL (0.00-0.70); EOSINOPHILS % (AUTO) 0.9 % (0.0-8.0); HEMATOCRIT 30.5 % (42-54); IMMATURE GRANULOCYTE ABSOLUTE 0.03 K/uL (0-1); LYMPHOCYTES # (AUTO) 0.9 K/uL (1.0-4.8); MEAN CORPUSCULAR HEMOGLOBIN 31.6 pg (27.0-33.0); MEAN CORPUSCULAR HGB CONC 32.1 g/dL (32.0-36.0); MEAN CORPUSCULAR VOLUME 98.4 fL (79-99); MONOCYTES # (AUTO) 0.5 K/uL (0.1-1.0); MONOCYTES % (AUTO) 6.9 % (3.0-13.0); NEUTROPHILS % (AUTO) 79.3 % (40.0-77.0); PLATELET COUNT (AUTO) 139 K/uL (130-400); RED CELL DISTRIBUTION WIDTH 16.7 % (11.0-15.5); WHITE BLOOD COUNT (AUTO) 7.5 K/uL (4.8-10.8)
[2024-03-16 09:19] LABS: ERYTHROCYTE SEDIMENTATION RATE 29 MM/HR (0-20)
[2024-03-16 09:21] LABS: HEMOGLOBIN A1C 5.6 % (4.0-6.0)
[2024-03-16] MEDS: acetaMINOPHEN 325 MG TAB PO PRN (09:26)
[2024-03-16] MEDS: 0.9%NACL 1000ML 1,000 ML IV SCH (11:50)
[2024-03-16] MEDS ORDERED: METO25TA6 PO (12:09)
[2024-03-16] MEDS ORDERED: ALPR0.5T8 PO (12:09)
[2024-03-16] MEDS ORDERED: LOSA50TA64 PO (12:09)
[2024-03-16] MEDS ORDERED: DOCU100C33 PO (12:09)
[2024-03-16] MEDS ORDERED: MECL-302 PO (12:09)
[2024-03-16] MEDS ORDERED: CETI10TA57 PO (12:09)
[2024-03-16] MEDS ORDERED: HYDR50TA37 PO (12:09)
[2024-03-16] MEDS ORDERED: GABA300S3 PO (12:09)
[2024-03-16] MEDS ORDERED: OMEP40CA21 PO (12:09)
[2024-03-16] MEDS ORDERED: SEVE800T27 PO (12:13)
[2024-03-16] MEDS ORDERED: mecliZINE HCL 25 MG TABLET PO PRN (13:30)
[2024-03-16] MEDS ORDERED: ALPRAZolam 0.5 MG TABLET PO PRN (13:30)
[2024-03-16] MEDS: hydrALAZine 25MG TABLET PO SCH (14:00)
[2024-03-16] MEDS: metoPROLOL tartRATE 25 MG TAB PO SCH (14:00)
[2024-03-16] MEDS ORDERED: metoPROLOL tartRATE 25 MG TAB PO SCH (14:00)
[2024-03-16] MEDS: ondanSETRON 4MG INJ IV PRN (14:38)
[2024-03-16] MEDS: sevELAMer HCL 800 MG TABLET PO SCH (17:51)
[2024-03-16] MEDS: doCUSate SODIUM 100 MG CAP PO SCH (20:57)
[2024-03-16] MEDS: BACLOFEN 10 MG TABLET PO SCH (20:57)
[2024-03-16] MEDS: BisaCODYL 5 MG TABLET.DR PO SCH (20:57)
[2024-03-16] MEDS: ondanSETRON ODT 4MG TAB PO SCH (20:58)
[2024-03-16] MEDS: atorVAStatin 40 MG TABLET PO SCH (20:58)
[2024-03-16] MEDS: GABAPENTIN 300 MG CAPSULE PO SCH (20:58)
[2024-03-16] MEDS ORDERED: BisaCODYL 5 MG TABLET.DR PO SCH (21:00)
[2024-03-17 00:13] VITALS: BP 134/62; PULSE 78; RESP 20; TEMP 98.1
[2024-03-17 00:16] VITALS: BP 130/75; PULSE 79; RESP 20; TEMP 98.1
[2024-03-17 00:19] VITALS: BP 143/80; PULSE 82; RESP 20; TEMP 98.1
[2024-03-17 04:00] VITALS: BP 136/66; PULSE 73; RESP 20; TEMP 98.3
[2024-03-17 05:09] LABS: BASOPHILS # (AUTO) 0.04 K/uL (0.00-0.20); BASOPHILS % (AUTO) 0.5 % (0.0-5.0); EOSINOPHILS # (AUTO) 0.07 K/uL (0.00-0.70); EOSINOPHILS % (AUTO) 0.9 % (0.0-8.0); HEMATOCRIT 31.4 % (42-54); IMMATURE GRANULOCYTE ABSOLUTE 0.03 K/uL (0-1); LYMPHOCYTES # (AUTO) 0.9 K/uL (1.0-4.8); LYMPHOCYTES % (AUTO) 11.5 % (21.0-51.0); MEAN CORPUSCULAR HEMOGLOBIN 31.4 pg (27.0-33.0); MEAN CORPUSCULAR HGB CONC 31.8 g/dL (32.0-36.0); MEAN CORPUSCULAR VOLUME 98.7 fL (79-99); MONOCYTES # (AUTO) 0.6 K/uL (0.1-1.0); MONOCYTES % (AUTO) 7.9 % (3.0-13.0); NEUTROPHILS # (AUTO) 6.1 K/uL (1.8-7.7); NEUTROPHILS % (AUTO) 78.8 % (40.0-77.0); PLATELET COUNT (AUTO) 152 K/uL (130-400); RED BLOOD CELL COUNT(AUTO) 3.18 MIL/uL (4.50-6.20); RED CELL DISTRIBUTION WIDTH 16.4 % (11.0-15.5); WHITE BLOOD COUNT (AUTO) 7.7 K/uL (4.8-10.8)
[2024-03-17 06:54] LABS: ALBUMIN 3.4 g/dL (3.5-5.0); BILIRUBIN,TOTAL 0.5 mg/dL (0.2-1.0); MAGNESIUM 1.9 mg/dL (1.80-2.40); POTASSIUM 5.5 mmol/L (3.5-5.1); TOTAL PROTEIN, SERUM 7.7 g/dL (6.0-8.3)
[2024-03-17 08:00] VITALS: BP 147/72; PULSE 75; RESP 18; TEMP 98.3; O2SAT 98
[2024-03-17] MEDS ORDERED: tamSULOsin HCL 0.4 MG CAP.ER.24H PO SCH (09:00)
[2024-03-17] MEDS ORDERED: carVEDIlol 6.25 MG TABLET PO SCH (09:00)
[2024-03-17] MEDS ORDERED: NON-FORMULARY MEDICATION 1 EACH (Folic Acid/Vitamin B Comp W-C (Rena-Vite Tablet) 0.8 MG) PO SCH (09:00)
[2024-03-17] MEDS ORDERED: doCUSate SODIUM 100 MG CAP PO SCH (09:00)
[2024-03-17] MEDS: ceTIRIzine HCL 5 MG TABLET PO SCH (09:09)
[2024-03-17] MEDS: furoSEMIDE 80 MG TABLET PO SCH (09:09)
[2024-03-17] MEDS: PANTOPrazole 40 MG TAB DR PO SCH (09:10)
[2024-03-17] MEDS: Vitamin B Complex/Vit C/Folic Acid PO SCH (09:11)
[2024-03-17] MEDS: SACUBITRIL/VALSARTAN 1 EACH TABLET PO SCH (09:11)
[2024-03-17] MEDS: LoSARTan 50 MG TABLET PO SCH (09:11)
[2024-03-17] MEDS: tamSULOsin HCL 0.4 MG CAP.ER.24H PO SCH (09:12)
[2024-03-17] MEDS: FOLATE 666 MCG PO SCH (09:14)
[2024-03-17 11:48] VITALS: BP_SYST 138; BP_SYST 144; BP_SYST 148; BP_DIAS 68; BP_DIAS 69; BP_DIAS 82; PULSE 74; RESP 18; TEMP 98.1
[2024-03-17] MEDS: sevELAMer HCL 800 MG TABLET PO SCH (12:18)
[2024-03-17] MEDS: NA ZIRCON CYCLOSIL(LOKELMA 10GM) PO ONE (12:19)
[2024-03-17] MEDS ORDERED: sevELAMer HCL 800 MG TAB PO (12:21)
== END 2024-03-17 13:30 | disposition home or self-care (01) ==
LOC: EDH 02:35 → EDHIP 05:28 → 4DH 08:39
PROVIDERS: ADMIT Internal Medicine; ATTEND Internal Medicine
DX: S86.912A Strain of unspecified muscle(s) and tendon(s) at lower leg level, left leg, initial encounter (principal); S80.212A Abrasion, left knee, initial encounter; R79.89 Other specified abnormal findings of blood chemistry; I12.0 Hypertensive chronic kidney disease with stage 5 chronic kidney disease or end stage renal disease; E11.22 Type 2 diabetes mellitus with diabetic chronic kidney disease; N18.6 End stage renal disease; E87.70 Fluid overload, unspecified; D63.1 Anemia in chronic kidney disease; E87.1 Hypo-osmolality and hyponatremia; E11.649 Type 2 diabetes mellitus with hypoglycemia without coma; I65.29 Occlusion and stenosis of unspecified carotid artery; E78.5 Hyperlipidemia, unspecified; M25.552 Pain in left hip; E66.01 Morbid (severe) obesity due to excess calories; E87.5 Hyperkalemia; K21.9 Gastro-esophageal reflux disease without esophagitis; I44.4 Left anterior fascicular block; I44.0 Atrioventricular block, first degree; I25.10 Atherosclerotic heart disease of native coronary artery without angina pectoris; Z88.5 Allergy status to narcotic agent; Z88.8 Allergy status to other drugs, medicaments and biological substances; Z79.4 Long term (current) use of insulin; Z91.199 Patient's noncompliance with other medical treatment and regimen due to unspecified reason; Z99.2 Dependence on renal dialysis; Z68.37 Body mass index [BMI] 37.0-37.9, adult; W19.XXXA Unspecified fall, initial encounter; Y93.89 Activity, other specified; Y92.098 Other place in other non-institutional residence as the place of occurrence of the external cause; Y99.8 Other external cause status
CPT/HCPCS: 96374; 96361; 96375; 93005; 99285; 83036; 84443; 82550; 84484 ×2; 80048; 83880; 85025 ×3; 85651; 82948 ×9; 36415 ×2; 73070; 73502; 73562; 73030; 70450; 72125; 72131; 72128; 90935; 83735; 80053; 97161; 97116; 97530; G0378 ×29; J0360; J2405; G0257

== ENCOUNTER 2024-08-04 15:07 | Emergency (ER) | payer OTHER, MEDICARE ==
[~2024-08-04] VITALS: Ht 177.8 cm; Wt 122.5 kg
[~2024-08-04 15:07] MED LIST changes: -ACET-66 PO; -ALPR0.5T11 PO; +ALPR0.5T8 PO; -CITA-107 PO; -CYCL10TA16 PO; -DICY20TA3 PO; +DOCU100C33 PO; -FINA5TAB41 PO; -FOLI0.4T6 PO; -GABA-534 PO; +GABA300S3 PO; -INSU100I15 SQ; -INSU100V37 SQ; -LACT10SO9 PO; -METH4TAB15 PO; +METO25TA6 PO; -METO50TA18 PO; -TERB250T89 PO; -TIRZ7.5P SQ; -VITAMIN D PO; -ZOLP5TAB8 PO; +sevELAMer HCL 800 MG TAB PO
--- NOTE | 2024-08-04 15:30 | ERN ---
ED Note History of Present Illness Stated Complaint: COUGH Chief Complaint: Congestion Time Seen by MD: 15:11 Dictation: Patient is a 59-year-old male with a past medical history of diabetes mellitus, end-stage renal disease on hemodialysis Monday who presented to the ER complaining of chest congestion, cough with phlegm, also subjective fever. He reports symptoms started 3 days ago. Allergies: Coded Allergies: liraglutide (Unverified Allergy, Unknown, 07/11/20) tramadol (Unverified Allergy, Unknown, 07/11/20) hydromorphone (Unverified Adverse Reaction, Mild, NAUSEA, 03/05/24) Home Meds Active Scripts [sevELAMer HCL 800 MG TAB] 800 MG/TAB TABLET No Conflict Check, 2400 MG PO TIDMEALS, #60 TAB 0 Refills Prov:VERNELLYOLILiamCHATO B SUPPLY CHAIN MANAGER 03/17/24 Reported Medications Sevelamer HCl (Sevelamer HCl) 800 Mg Tablet, 800 MG PO TIDMEALS, TAB TAKE 3 TABLETS 03/16/24 Docusate Sodium (Docusate Sodium) 100 Mg Capsule, 100 MG PO BID, CAP 03/16/24 Bisacodyl (Dulcolax 5Mg Tab) 5 Mg Tablet.dr, 5 MG PO HS, TAB 03/16/24 Hydralazine HCl (Hydralazine HCl) 50 Mg Tablet, 50 MG PO TID, TAB 03/16/24 Meclizine HCl (Meclizine HCl) 25 Mg Tablet, 25 MG PO HSPRN PRN for DIZZINESS, TAB 03/16/24 Metoprolol Tartrate (Metoprolol Tartrate) 25 Mg Tablet, 25 MG PO TID, TAB 03/16/24 Omeprazole (Omeprazole) 40 Mg Capsule.dr, 40 MG PO AM, CAP 03/16/24 Tamsulosin HCl (Flomax) 0.4 Mg Cap.er.24h, 0.4 MG PO DAILY, CAPSULE.DR 03/16/24 Cetirizine HCl (Cetirizine HCl) 10 Mg Tablet, 10 MG PO DAILY, TAB 03/16/24 Losartan Potassium (Losartan Potassium) 50 Mg Tablet, 50 MG PO DAILY, TAB 03/16/24 Gabapentin (Gabapentin) 300 Mg/6 Ml (6 Ml) Solution, 300 MG PO BID, ML 03/16/24 Alprazolam (Alprazolam) 0.5 Mg Tablet, 0.5 MG PO BID PRN for ANXIETY/AGITATION, TAB 03/16/24 Folic Acid/Vitamin B Comp W-C (Alize-Walt Tablet) 0.8 Mg Tablet, 0.8 MG PO DAILY, TAB 03/16/24 Ondansetron (Ondansetron Odt) 4 Mg Tab.rapdis, 4 MG PO BID for 3 Days, TAB 03/05/24 Folic Acid/Vitamin B Comp W-C (Alize-Walt Tablet) 0.8 Mg Tablet, 0.8 MG PO DAILY, TAB 03/05/24 [Folate] No Conflict Check, 666 MCG PO DAILY 03/05/24 Tamsulosin HCl (Flomax) 0.4 Mg Cap.er.24h, 0.4 MG PO DAILY, CAPSULE.DR 03/05/24 Bisacodyl (Dulcolax 5Mg Tab) 5 Mg Tablet.dr, 5 MG PO HS, TAB 03/05/24 Baclofen (Baclofen) 10 Mg Tablet, 10 MG PO HS, TAB 03/05/24 Sacubitril/Valsartan (Entresto 24 mg-26 mg Tablet) 24 Mg-26 Mg Tablet, 1 EACH PO DAILY, TAB 03/05/24 Atorvastatin Calcium (LIPITOR) 40 Mg Tablet, 40 MG PO HS, TAB 03/05/24 Carvedilol (Carvedilol) 6.25 Mg Tablet, 6.25 MG PO DAILY, TAB 03/05/24 Docusate Sodium (Docusate Sodium) 100 Mg Tablet, 100 MG PO DAILY, TAB 03/05/24 Furosemide (Furosemide) 80 Mg Tablet, 80 MG PO T,TH,S,S, TAB 08/28/23 Past Medical History Past Medical History: Diabetes-Type II, High Cholesterol, Hypertension Additional Past Medical Hx: CKD Surgical History: Other Surgical History Other: KNEE SURGERY AND FISTULLA Family History: Negative Social History: Lives with family Review of System Dictation NEGATIVE EXCEPT PER HPI Constitutional: Reports subjective fever Eyes: Negative for injury, pain,redness, and discharge ENT: Negative for injury,pain or swelling Cardiovascular: denies chest pain, palpitations, and edema Respiratory: Chest congestion, cough with phlegm. Abdomen/GI: Negative for abdominal pain, nausea, vomiting, diarrhea, and constipation Back: Negative for injury and pain : Negative for injury, bleeding and discharge MS/Extremity: Negative for injury and deformity Skin: Negative for rash, and discoloration Neuro: Negative for headache, weakness, numbness, tingling, and seizure Psych: Negative for suicide ideation, homicidal ideation, and hallucinations Initial Vital Sign VS Vital Signs Date Time Temp Pulse Resp B/P (MAP) Pulse Ox O2 Delivery O2 Flow Rate FiO2 08/04/24 15:10 98.8 89 20 179/86 98 Room Air 0 08/04/24 15:30 21 Physical Exam Dictation General: awake, alert, NAD Head/Face: Normocephalic, atraumatic Eyes: PERRL, EOMI, vision at baseline ENT: oral cavity clear, TMs clear, no signs of infection Neck: Trachea midline, supple, no nuchal rigidity Cardiovascular: RRR, normal S1/S2, No MRGs, no JVD Respiratory: CTAB, no respiratory distress, No rales or wheezes Abdomen: Soft , no tender Skin: Warm, dry, normal turgor, no rash MS/Extremity: Pulses equal, no cyanosis, neurovascular intact, FROM Neuro: COAx4, GCS 15, strength 5/5, CN 2-12 intact, normal cerebellar exam, normal gait, Psych: Normal behavior, mood, and affect normal Results (Laboratory/Radiology) Laboratory/Radiology Laboratory Tests Test 08/04/24 15:30 08/04/24 15:33 Influenza Type A Antigen Negative For Type A Influenza Type B Antigen Negative For Type B SARS-CoV-2 Antigen (Rapid) PRESUMPTIVE NEGATIVE Group A Streptococcus Rapid negative (NEGATIVE) White Blood Count 14.6 K/uL (4.8-10.8) H Red Blood Count 2.98 MIL/uL (4.50-6.20) L Hemoglobin 9.9 g/dL (14.0-18.0) L Hematocrit 29.5 % (42-54) L Mean Corpuscular Volume 99.0 fL (79-99) Mean Corpuscular Hemoglobin 33.2 pg (27.0-33.0) H Mean Corpuscular Hemoglobin Concent 33.6 g/dL (32.0-36.0) Red Cell Distribution Width 17.3 % (11.0-15.5) H Platelet Count 105 K/uL (130-400) L Mean Platelet Volume 10.8 fL (7.5-10.5) H Immature Granulocyte % (Auto) 0.6 % (0-1) Neutrophils (%) (Auto) 91.0 % (40.0-77.0) H Lymphocytes (%) (Auto) 2.9 % (21.0-51.0) L Monocytes (%) (Auto) 4.9 % (3.0-13.0) Eosinophils (%) (Auto) 0.3 % (0.0-8.0) Basophils (%) (Auto) 0.3 % (0.0-5.0) Neutrophils # (Auto) 13.3 K/uL (1.8-7.7) H Lymphocytes # (Auto) 0.4 K/uL (1.0-4.8) L Monocytes # (Auto) 0.7 K/uL (0.1-1.0) Eosinophils # (Auto) 0.04 K/uL (0.00-0.70) Basophils # (Auto) 0.05 K/uL (0.00-0.20) Absolute Immature Granulocyte (auto 0.09 K/uL (0-1) Nucleated Red Blood Cells 0.0 % (0.0-0.19) White Cell Morphology Comment See comments Sodium Level 137 mmol/L (136-145) Potassium Level 4.5 mmol/L (3.5-5.1) Chloride Level 96 mmol/L (101-111) L Carbon Dioxide Level 29 mmol/L (21-32) Blood Urea Nitrogen 64 mg/dL (7-18) H Creatinine 9.4 mg/dL (0.5-1.3) *H Glomerular Filtration Rate Calc 6 mL/min (>90) Random Glucose 187 mg/dL (70-105) H Total Calcium 8.3 mg/dL (8.5-10.1) L ED Course ED Course Orders Procedure Category Date Status Time Influenza Type A & B, LAB 08/04/24 Complete Rapid 15:17 Covid19 (Sars Antigen LAB 08/04/24 Complete Rapid) 15:17 Rapid (Group A Strep) LAB 08/04/24 Complete 15:17 Cbc With Differential LAB 08/04/24 Complete 15:17 Basic Metabolic Panel LAB 08/04/24 Complete 15:17 Chest 1vw RAD 08/04/24 Resulted 15:17 Ipratropium/Albuterol PHA 08/04/24 Complete Neb (Duoneb) 15:30 Guaifenesin/Dextromethorphan PHA 08/04/24 Complete (Mucinex Dm 16:00 Ceftriaxone 1g Vial PHA 08/04/24 Complete (Rocephine 1g Inj) 16:30 Current Medications Medications (Trade) Dose Ordered Sig/Edita Route PRN Reason Start Time Stop Time Status Last Admin Dose Admin Albuterol (DUOneb) 1 udvial ONCE ONCE IH 08/04/24 15:30 08/04/24 15:31 DC Ceftriaxone Sodium (ROCEphine 1G INJ) 1 gm ONCE ONCE IVPB 08/04/24 16:30 08/04/24 16:31 DC Guaifenesin/ Dextromethorphan (MUCinex DM 1 EACH TAB.SR.12H) 1 each ONCE ONCE PO 08/04/24 16:00 08/04/24 16:01 DC Vital Signs Date Time Temp Pulse Resp B/P (MAP) Pulse Ox O2 Delivery O2 Flow Rate FiO2 08/04/24 15:30 98.8 89 20 179/86 Room Air* 0 21 08/04/24 15:10 98.8 89 20 179/86 98 Room Air 0 Medical Decision Making MDM Patient is a 59-year-old male with a past medical history of diabetes mellitus, end-stage renal disease on hemodialysis Monday who presented to the ER complaining of chest congestion, cough with phlegm, also subjective fever. He reports symptoms started 3 days ago. Flu-like symptoms Influenza virus Pneumonia Fluid overload CBC, BMP ordered Flu a and B rapid, strep, coronavirus test ordered. Chest x-ray ordered. Leukocytosis reports with a WBC 14.6 Chest x-ray negative for pneumonia I will treat the patient empirically with a 1 g ceftriaxone due to leukocytosis possible UTI. Patient will be discharged on cefdinir x5 days. Medication for congestion cleaning guaifenesin and Tylenol p.r.n. for fever. Creatinine 9.2, potassium 4.5 DX & DISP Disposition: Discharge Departure Impression: Primary Impression: UTI (urinary tract infection) Additional Impression: Congestion of upper airway Condition: Stable Scripts Guaifenesin (Guaifenesin) 100 Mg/5 Ml Liq 10 ML PO QID for cough for 6 Days, #240 ML 0 Refills Prov: BOZENA DE LA O MD 08/04/24 Acetaminophen (Tylenol) 500 Mg Tab 1 TAB PO Q6HPRN PRN for pain or fever for 5 Days, #20 TAB 0 Refills Prov: BOZENA DE LA O MD 08/04/24 Cefdinir (Cefdinir) 300 Mg Capsule 1 CAP PO BID for 5 Days, #10 CAP 0 Refills Prov: BOZENA DE LA O MD 08/04/24 Additional Instructions: RETURN TO ER FOR ANY ACUTE OR WORSENING SYMPTOMS. FOLLOW-UP IN 1-2 DAYS WITH PRIMARY PROVIDER FOR RECHECK OF TODAY'S SYMPTOMS. Referrals: TRINIDAD ROMERO M.D. (PCP) Time of Disposition: 16:46 BOZENA DE LA O MD Aug 04, 2024 15:30
[2024-08-04 15:41] LABS: BASOPHILS # (AUTO) 0.05 K/uL (0.00-0.20); BASOPHILS % (AUTO) 0.3 % (0.0-5.0); EOSINOPHILS # (AUTO) 0.04 K/uL (0.00-0.70); EOSINOPHILS % (AUTO) 0.3 % (0.0-8.0); HEMATOCRIT 29.5 % (42-54); IMMATURE GRANULOCYTE ABSOLUTE 0.09 K/uL (0-1); LYMPHOCYTES # (AUTO) 0.4 K/uL (1.0-4.8); LYMPHOCYTES % (AUTO) 2.9 % (21.0-51.0); MEAN CORPUSCULAR HEMOGLOBIN 33.2 pg (27.0-33.0); MEAN CORPUSCULAR HGB CONC 33.6 g/dL (32.0-36.0); MONOCYTES # (AUTO) 0.7 K/uL (0.1-1.0); MONOCYTES % (AUTO) 4.9 % (3.0-13.0); NEUTROPHILS # (AUTO) 13.3 K/uL (1.8-7.7); PLATELET COUNT (AUTO) 105 K/uL (130-400); RED BLOOD CELL COUNT(AUTO) 2.98 MIL/uL (4.50-6.20); RED CELL DISTRIBUTION WIDTH 17.3 % (11.0-15.5); WHITE BLOOD COUNT (AUTO) 14.6 K/uL (4.8-10.8)
[2024-08-04 15:48] LABS: RAPID GROUP A STREP negative (NEGATIVE)
[2024-08-04 15:57] LABS: POTASSIUM 4.5 mmol/L (3.5-5.1)
[2024-08-04 15:57] LABS: COVID19 (SARS ANTIGEN RAPID) PRESUMPTIVE NEGATIVE (NEGATIVE)
[2024-08-04 15:58] LABS: INFLUENZA TYPE A Negative For Type A (NEGATIVE); INFLUENZA TYPE B Negative For Type B (NEGATIVE)
[2024-08-04 15:59] LABS: CREATININE 9.4 mg/dL (0.5-1.3)
--- NOTE | 2024-08-04 16:35 | HMCIMG ---
CHEST 1VW CLINICAL HISTORY: Possible pneumonia COMPARISON: None TECHNIQUE: Single view of the chest was obtained. FINDINGS: Lungs are clear. The cardiac size and mediastinum are unremarkable. The bony structures are within normal limits. IMPRESSION: No acute cardiopulmonary process identified.
[2024-08-04] MEDS ORDERED: GUAI100S13 PO (16:45)
[2024-08-04] MEDS ORDERED: ACET-66 PO (16:45)
[2024-08-04] MEDS ORDERED: CEFD300C3 PO (16:45)
[2024-08-04] MEDS: cefTRIAXone 1G VIAL IVPB ONE (17:09)
[2024-08-04] MEDS: guaiFENesin/dextroMETHORphan 1 EACH TAB.SR.12H PO ONE (17:11)
[2024-08-04] MEDS: IpraTROPium/alBUTERol SULFATE 3 ML SOLUTION IH ONE (18:31)
[2024-08-04 18:36] VITALS: PULSE 74; RESP 19; O2SAT 99
[2024-08-04 19:05] VITALS: BP 145/70; PULSE 74; RESP 19; TEMP 98.2; O2SAT 98
== END 2024-08-04 19:09 | disposition home or self-care (01) ==
LOC: EDH 15:07
DX: N39.0 Urinary tract infection, site not specified (principal); R09.89 Other specified symptoms and signs involving the circulatory and respiratory systems; E11.22 Type 2 diabetes mellitus with diabetic chronic kidney disease; I12.9 Hypertensive chronic kidney disease with stage 1 through stage 4 chronic kidney disease, or unspecified chronic kidney disease; N18.9 Chronic kidney disease, unspecified; E78.00 Pure hypercholesterolemia, unspecified; Z79.899 Other long term (current) drug therapy; Z88.5 Allergy status to narcotic agent; Z88.8 Allergy status to other drugs, medicaments and biological substances; Z20.822 Contact with and (suspected) exposure to COVID-19
CPT/HCPCS: 99285; 96374; 71045; 87426; 80048; 85025; 87880; 87804 ×2; 36415; 94640; J0696; 99284

== ENCOUNTER 2024-08-19 10:17 | Observation (INO) | payer OTHER, MEDICARE ==
[2024-08-19] VITALS (16 sets, daily range): BP systolic 120–169; BP diastolic 65–78; PULSE 60–73; RESP 16–20; TEMP 97.5–98.5
[~2024-08-19] VITALS: Ht 177.8 cm; Wt 116.7 kg
[~2024-08-19 10:17] MED LIST changes: +ACET-66 PO; +CEFD300C3 PO; +GUAI100S13 PO
--- NOTE | 2024-08-19 10:47 | EKG ---
[facility] Test Date: 2024-08-19 Test Time: 10:34:31 Pat Name: REGGIE GREENWOOD Department: EDH Room: ED Gender: M Regional Sales Associate: [id number] : 1965 Requested By: ALISSA PATTERSON Order Number: [id number] Reading MD: Chacho Bonilla Measurements Intervals [place] Rate: 73 P: 35 TX: 274 QRS: -50 QRSD: 190 T: 107 QT: 465 QTc: 511 Interpretive Statements Sinus rhythm Prolonged TX interval Left bundle branch block ST elevation secondary to IVCD Compared to ECG 03/16/2024 04:35:21 Left bundle-branch block now present Intraventricular conduction delay now present ST (T wave) deviation now present Left anterior fascicular block no longer present Myocardial infarct finding no longer present Electronically Signed On 08-19-2024 16:05:08 FORM TAMPER by Chacho Bonilla Please click the below link to view image of tracing.
[2024-08-19 11:49] LABS: BASOPHILS # (AUTO) 0.08 K/uL (0.00-0.20); BASOPHILS % (AUTO) 0.6 % (0.0-5.0); EOSINOPHILS # (AUTO) 0.12 K/uL (0.00-0.70); EOSINOPHILS % (AUTO) 0.9 % (0.0-8.0); HEMATOCRIT 26.2 % (42-54); IMMATURE GRANULOCYTE ABSOLUTE 0.08 K/uL (0-1); LYMPHOCYTES # (AUTO) 0.9 K/uL (1.0-4.8); LYMPHOCYTES % (AUTO) 6.3 % (21.0-51.0); MEAN CORPUSCULAR HEMOGLOBIN 33.3 pg (27.0-33.0); MEAN CORPUSCULAR HGB CONC 32.8 g/dL (32.0-36.0); MEAN CORPUSCULAR VOLUME 101.6 fL (79-99); MONOCYTES # (AUTO) 0.7 K/uL (0.1-1.0); MONOCYTES % (AUTO) 4.9 % (3.0-13.0); NEUTROPHILS # (AUTO) 11.9 K/uL (1.8-7.7); NEUTROPHILS % (AUTO) 86.7 % (40.0-77.0); PLATELET COUNT (AUTO) 178 K/uL (130-400); RED BLOOD CELL COUNT(AUTO) 2.58 MIL/uL (4.50-6.20); RED CELL DISTRIBUTION WIDTH 17.3 % (11.0-15.5); WHITE BLOOD COUNT (AUTO) 13.7 K/uL (4.8-10.8)
[2024-08-19 12:01] LABS: BILIRUBIN,DIRECT 0.1 mg/dL (0.0-0.3); BILIRUBIN,TOTAL 0.5 mg/dL (0.2-1.0); TOTAL PROTEIN, SERUM 7.3 g/dL (6.0-8.3)
[2024-08-19 12:23] LABS: INR 1.08 (0.85-1.15); PROTHROMBIN TIME 11.4 SEC (9.6-11.6)
[2024-08-19 12:24] LABS: B-TYPE NATRIURETIC PEPTIDE 1820 pg/mL (0-100); PARTIAL THROMBOPLASTIN TIME 28.9 SEC (26.3-35.5)
[2024-08-19 12:24] LABS: INFLUENZA TYPE A Negative For Type A (NEGATIVE); INFLUENZA TYPE B Negative For Type B (NEGATIVE)
--- NOTE | 2024-08-19 12:38 | HMCIMG ---
CHEST 1VW HISTORY: Shortness of breath COMPARISON: 08/04/2024 FINDINGS: A frontal projection of the chest was obtained. Mild bilateral pulmonary infiltrates are seen may be related to mild pulmonary vascular congestion with possible superimposed pneumonitis. The heart is borderline enlarged. Degenerative changes are seen. IMPRESSION: 1. Mild bilateral pulmonary infiltrates are seen may be related to mild pulmonary vascular congestion with possible superimposed pneumonitis.
[2024-08-19 12:46] LABS: POTASSIUM 6.3 mmol/L (3.5-5.1)
[2024-08-19] MEDS: CALCIUM GLUC 1GM/10ML VIAL IVPB STA (13:06)
[2024-08-19] MEDS: SODIUM BICARB 50MEQ 50ML VIAL IV ONE (13:06)
[2024-08-19] MEDS: INSULIN humuLIN R 100 UNIT/ML 3ML IV ONE (13:22)
[2024-08-19] MEDS: DEXTROSE 50%-WATER 50 ML DISP.SYRIN IV ONE (13:22)
--- NOTE | 2024-08-19 13:30 | NUR ---
NEPHROLOGY CONSULT: PATIENT REPORT GIVEN TO DR STRINGER.
[2024-08-19] MEDS ORDERED: DEXTROSE 50%-WATER 50 ML DISP.SYRIN IV PRN (14:30)
[2024-08-19] MEDS ORDERED: MAGNESIUM 2GM PREMIX 50ML 50 ML IV PRN (14:30)
[2024-08-19] MEDS ORDERED: GLUCAGON 1MG KIT 1 MG ML IM PRN (14:30)
--- NOTE | 2024-08-19 14:45 | HP ---
[facility] HISTORY AND PHYSICAL Date of Service: Aug 19, 2024 Time of Service: 14:37 PCP: Dr. Tim Oliver from [facility] Er Admitting: Dr Barba, Allergies: Hydromorphone, tramadol, Liraglutide HISTORY OF PRESENT ILLNESS: [ Patient is 59 years old male with a past medical history of ESRD on dialysis Monday, left knee replacement, cardiac stents placement about three weeks ago on anticoagulation Brilinta, diabetes, hypertension, hyperlipidemia, IBS, neuropathy, who came to emergency department with shortness of breaths. Patient stated that he has not been able to sleep because of the shortness of breaths. Today in the morning he called dialysis site at 5:00 a.m. and ask for coag dialysis since he does not feel good and he can not breathe. Unfortunately the person at the dialysis site told him that they will not be able to take monitor 130 today afternoon in she advised patient to go to emergency department. Most recent vital signs temperature 98.2 pulse 67 respiration 24 blood pressure 154/75. Patient is on room air satting 90%. Influenza A negative influenza B negative COVID negative. WBC 13.7 hemoglobin 8.6 hematocrit 26.2 platelets 178. Sodium 135 potassium 6.3 chloride 97 CO2 27 BUN 60 creatinine 11 GFR five random glucose 179 calcium 8.0 troponin positive x1 119 BNP 1820. Patient will be admitted under hospitalist care for further evaluation/re commendations. We will consult records management associate for ESRD dialysis. Patient agrees with the further plan. REVIEW OF SYSTEMS CONSTITUTIONAL: Denies fevers, chills, or night sweats. No unintentional weight loss reported. NEUROLOGICAL: Denies headache, amaurosis fugax, motor weakness, sensory deficit, vertigo/spinning sensation, gait abnormalities, or tremors. ENT: No hearing loss, otalgia, otorrhea, rhinitis, rhinorrhea, hoarseness, or sore throat. CARDIOVASCULAR: Denies any exertional angina, dyspnea on exertion, orthopnea, paroxysmal nocturnal dyspnea, palpitations, life-threatening arrhythmias, claudication. PULMONARY: Denies any cough, phlegm/sputum, hemoptysis, pleuritic chest pain. Patient complains of shortness of breaths SLEEP: Denies morning headaches, daytime somnolence or napping. Denies difficulty falling asleep, staying asleep, waking from sleep. Denies knowledge of snoring. GASTROINTESTINAL: Denies any type of dysphagia to either liquids or solids. Denies nausea, vomiting, pyrosis, early satiety, abdominal pain, diarrhea, constipation, or changes in stool consistency or caliber. Denies coffee-ground emesis, hematemesis, hematochezia, or melanotic stools. GENITOURINARY: Denies frequency, urgency, nocturia, hematuria or incontinence (Storage/Irritative symptoms.) Low urinary stream, straining to void, urinary intermittency or hesitancy, splitting of the voiding stream, terminal dribbling. ENDOCRINOLOGIC: Denies polyuria, polydipsia, polyphagia or heat/cold intolerances. HEMATOLOGIC: Denies thrombophilia/previous clots, or coagulopathy/bleeding disorders. ONCOLOGIC: Denies personal history of malignancy. DERMATOLOGIC: Denies rashes or pruritus. PSYCHIATRIC: Denies any suicidal or homicidal ideation. Denies hallucinations. PAST MEDICAL HISTORY: [ Diabetes, hypertension, hyperlipidemia, morbid obesity, ESRD dialysis, glaucoma, neuropathy, on Brilinta for recent stent placement, IBS, Kate urination ] PAST SURGICAL HISTORY: [ Recent stent placement on Brilinta , fistula left arm, left knee surgery 2005 for placement] PAST SOCIAL HISTORY: [ Patient denies any alcohol use, any drug use, patient denies smoking ] FAMILY HISTORY: [ Patient lives with the family members and uses cane for ambulation ] Coded Allergies: liraglutide (Unverified Allergy, Unknown, 07/11/20) tramadol (Unverified Allergy, Unknown, 07/11/20) hydromorphone (Unverified Adverse Reaction, Mild, NAUSEA, 03/05/24) PHYSICAL EXAM GENERAL APPEARANCE: The patient is awake, alert, and oriented, in no acute cardiopulmonary distress. NEUROLOGICAL: Cranial nerves II-XII grossly intact. Motor is 5/5 in bilateral upper and lower extremities proximal to distal. No sensory deficits. HEENT: Face is symmetric. Pupils are equal and reactive. Extraocular movements are intact. NECK: Supple. No JVD. No thyromegaly. No submental, submandibular, pre- /postauricular, occipital or supraclavicular lymphadenopathy. CHEST: Normal chest expansion. No Telemetry. LUNGS: Absence of any rales, rhonchi or any wheezing. CARDIOVASCULAR: Regular. S1 and S2 normal. No appreciable rubs, murmurs or gallops. ABDOMEN: Soft, nontender, and nondistended. There is no rebound, voluntary guarding, or rigidity. : Deferred. No Ward. EXTREMITIES: Non-edematous and not cyanotic. No clubbing. Good capillary refill. SKIN: No skin breakdown. Vital Sign (Last 24 Hours) 08/19/24 08/19/24 11:02 12:43 Temp 98.2 Pulse 67 Resp 24 B/P (MAP) 154/75 Pulse Ox 98 O2 Delivery Room Air* O2 Flow Rate 0 FiO2 21 LABS: Laboratory: Test 08/19/24 11:05 08/19/24 10:59 Range/Units Influenza Type A Antigen Negative For Type A NEGATIVE Influenza Type B Antigen Negative For Type B NEGATIVE SARS-CoV-2 Antigen (Rapid) PRESUMPTIVE NEGATIVE NEGATIVE White Blood Count 13.7 H 4.8-10.8 K/uL Red Blood Count 2.58 L 4.50-6.20 MIL/uL Hemoglobin 8.6 L 14.0-18.0 g/dL Hematocrit 26.2 L 42-54 % Mean Corpuscular Volume 101.6 H 79-99 fL Mean Corpuscular Hemoglobin 33.3 H 27.0-33.0 pg Mean Corpuscular Hemoglobin Concent 32.8 32.0-36.0 g/dL Red Cell Distribution Width 17.3 H 11.0-15.5 % Platelet Count 178 130-400 K/uL Mean Platelet Volume 11.2 H 7.5-10.5 fL Immature Granulocyte % (Auto) 0.6 0-1 % Neutrophils (%) (Auto) 86.7 H 40.0-77.0 % Lymphocytes (%) (Auto) 6.3 L 21.0-51.0 % Monocytes (%) (Auto) 4.9 3.0-13.0 % Eosinophils (%) (Auto) 0.9 0.0-8.0 % Basophils (%) (Auto) 0.6 0.0-5.0 % Neutrophils # (Auto) 11.9 H 1.8-7.7 K/uL Lymphocytes # (Auto) 0.9 L 1.0-4.8 K/uL Monocytes # (Auto) 0.7 0.1-1.0 K/uL Eosinophils # (Auto) 0.12 0.00-0.70 K/uL Basophils # (Auto) 0.08 0.00-0.20 K/uL Absolute Immature Granulocyte (auto 0.08 0-1 K/uL Nucleated Red Blood Cells 0.0 0.0-0.19 % White Cell Morphology Comment See comments Prothrombin Time 11.4 9.6-11.6 SEC Prothromb Time International Ratio 1.08 0.85-1.15 Activated Partial Thromboplast Time 28.9 26.3-35.5 SEC Sodium Level 135 L 136-145 mmol/L Potassium Level 6.3 *H 3.5-5.1 mmol/L Chloride Level 97 L 101-111 mmol/L Carbon Dioxide Level 27 21-32 mmol/L Blood Urea Nitrogen 60 H 7-18 mg/dL Creatinine 11.0 *H 0.5-1.3 mg/dL Glomerular Filtration Rate Calc 5 >90 mL/min Random Glucose 179 H 70-105 mg/dL Total Calcium 8.0 L 8.5-10.1 mg/dL Total Bilirubin 0.5 0.2-1.0 mg/dL Direct Bilirubin 0.1 0.0-0.3 mg/dL Aspartate Amino Transf (AST/SGOT) 17 10-37 U/L Alanine Aminotransferase (ALT/SGPT) 17 12-78 U/L Alkaline Phosphatase 100 50-136 U/L Troponin I High Sensitivity 119 *H 4-75 ng/L B-Type Natriuretic Peptide 1820 H 0-100 pg/mL Total Protein 7.3 6.0-8.3 g/dL Albumin 3.0 L 3.5-5.0 g/dL Current Medications Medications (Trade) Dose Ordered Sig/Edita Route PRN Reason Start Time Stop Time Status Last Admin Dose Admin Calcium Gluconate (Calcium Gluc 1gm Vial) 1 gm PROTOCOL STAT IVPB 08/19/24 12:52 08/19/24 12:53 DC 08/19/24 13:06 1 GM Dextrose (D50w) 50 ml AD PRN IV HYPOGLYCEMIA PROTOCOL 08/19/24 14:30 09/18/24 14:29 Glucagon (Glucagon 1mg Kit) 1 mg AD PRN IM HYPOGLYCEMIA PROTOCOL 08/19/24 14:30 09/18/24 14:29 Insulin Human Regular (humuLIN R 100 UNIT/ML 3ML) INSULIN SLIDING SCAL... ACHS SQ 08/19/24 16:30 09/18/24 16:29 Magnesium Sulfate 50 ml @ 0 mls/hr PROTOCOL PRN IV other 08/19/24 14:30 09/18/24 14:29 DIAGNOSTICS / RADIOLOGY: [ ] ASSESSMENT: [ Acute hypoxic respiratory failure POA ESRD needing dialysis POA Fluid overload POA Acute systolic and diastolic heart failure 2D echo 50 to 55% stage II diastolic dysfunction 03/05/2024 POA Recent fall POA Iron-deficiency anemia POA Multifactorial anemia due to above POA Hyperlipidemia Uncontrolled diabetes mellitus type 2 with hypoglycemia POA Uncontrolled hypertension POA Recent cardiac stents placement on Brilinta three weeks ago POA Morbid obesity Glaucoma Neuropathy Irritable bowel syndrome Little urination due to ESRD dialysis ] PLAN: [ Admit to: Medical-surgical floor Consults: Fence Rider Antibiotics: Rocephin Tests: None at this moment NEURO: Minimize central acting medications as possible. Fall Precautions. Well lighted room through the day and minimize interruptions through the night to prevent acute delirium. PULMONARY: Chest x-ray showed infiltrate vascular congestion Supplemental 02 as needed BiPAP as necessary, for respiratory distress Titrate Fio2 to keep Spo2 > or = 90% DuoNebs and CPT as needed IS hourly while awake for pulmonary hygiene Out of bed to chair as tolerated VAP Bundle Maintain aspiration precautions at all times CARDIOVASCULAR: Most recent 2D echo 03/05/2024 showed 50 to 55% stage II diastolic dysfunction Follow hemodynamics. Vital signs per facility protocol GI & NUTRITION: Continue nutritional support Aspirations precautions Prokinetic agents and laxatives as needed KIDNEYS & ELECTROLYTES: Strict monitoring of intake and output Daily weights Avoid nephrotoxic agents Monitor electrolytes and replace as needed Goal urine output of 30mL/hr or 0.5mL/kg/hr Medications to be dosed according to renal function. Avoid contrast if possible ENDOCRINE: Maintain blood glucose between 100-180 at all times. Insulin sliding scale for blood glucose management Hypoglycemia and hyperglycemia protocol in place INFECTIOUS DISEASE: Trend temperature, WBC and procalcitonin level Follow cultures, deescalate antibiotics as soon as possible. Panculture if new onset fever HEMATOLOGY & COAGULATION: Monitor H&H. Keep Hgb > 7 Transfuse 1 unit of PRBC for Hgb < 7 Transfuse 1 pack of platelets of platelets < 20, 000 Watch for any signs and symptoms of bleeding SKIN: Pressure ulcer prevention per facility protocol Specialty mattress as needed Treatment plan discussed with patient and family at the bedside Medications to be reconciled once obtained by patient and/or family and available to be reconciled in computer p.r.n. medication for pain nausea and vomiting Questions were answered We will continue to monitor the patient closely Process Improvement Engineer for disposition Rehab: PT/OT GI: PPI DVT: SCD's Code Status: Full Resuscitation Disposition: TBD Prognosis: Guarded ] ADVANCED CARE PLANNING 1. Which of the following were discussed? Hospice Care - Yes / No Therapeutic options - Yes / No Advance Directives - Yes / No Other discussions - 2. Discussed with who? Patient 3. Voluntary nature of this service was explained to the patient? Yes / No 4. Amount of time spent - _ more than 35 minutes 5. Reviewed by Physician? (if this service was performed by NPP) Yes / No ATTESTATION BY PHYSICIAN I have seen and examined the patient. I reviewed the documentation, medical decision making, and treatment plan as noted by the mid-level provider above. I agree with the findings and plan of care. ARGELIA BARBA MD, KATARZYNA B UI LEAD DEVELOPER Aug 19, 2024 14:45
--- NOTE | 2024-08-19 14:58 | ERN ---
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 Patient reports cough, but denies any fever, vomiting or any other associated symptoms time. As per EMS patient was sating at 96% on 3 L nc. Patient states he has dialysis at 1 p.m. [facility]ES[facility]- Dr. Linda Allergies: Coded Allergies: liraglutide (Unverified Allergy, Unknown, 07/11/20) tramadol (Unverified Allergy, Unknown, 07/11/20) hydromorphone (Unverified Adverse Reaction, Mild, NAUSEA, 03/05/24) Home Meds Active Scripts Guaifenesin (Guaifenesin) 100 Mg/5 Ml Liq, 10 ML PO QID for cough for 6 Days, #240 ML 0 Refills Prov:BOZENA DE LA O MD 08/04/24 Acetaminophen (Tylenol) 500 Mg Tab, 1 TAB PO Q6HPRN PRN for pain or fever for 5 Days, #20 TAB 0 Refills Prov:BOZENA DE LA O MD 08/04/24 Cefdinir (Cefdinir) 300 Mg Capsule, 1 CAP PO BID for 5 Days, #10 CAP 0 Refills Prov:BOZENA DE LA O MD 08/04/24 [sevELAMer HCL 800 MG TAB] 800 MG/TAB TABLET No Conflict Check, 2400 MG PO TIDMEALS, #60 TAB 0 Refills Prov:CHATO BEAULIEU [employer]IRAL BINDER 03/17/24 Reported Medications Sevelamer HCl (Sevelamer HCl) 800 Mg Tablet, 800 MG PO TIDMEALS, TAB TAKE 3 TABLETS 03/16/24 Docusate Sodium (Docusate Sodium) 100 Mg Capsule, 100 MG PO BID, CAP 03/16/24 Bisacodyl (Dulcolax 5Mg Tab) 5 Mg Tablet.dr, 5 MG PO HS, TAB 03/16/24 Hydralazine HCl (Hydralazine HCl) 50 Mg Tablet, 50 MG PO TID, TAB 03/16/24 Meclizine HCl (Meclizine HCl) 25 Mg Tablet, 25 MG PO HSPRN PRN for DIZZINESS, TAB 03/16/24 Metoprolol Tartrate (Metoprolol Tartrate) 25 Mg Tablet, 25 MG PO TID, TAB 03/16/24 Omeprazole (Omeprazole) 40 Mg Capsule.dr, 40 MG PO AM, CAP 03/16/24 Tamsulosin HCl (Flomax) 0.4 Mg Cap.er.24h, 0.4 MG PO DAILY, CAPSULE. 03/16/24 Cetirizine HCl (Cetirizine HCl) 10 Mg Tablet, 10 MG PO DAILY, TAB 03/16/24 Losartan Potassium (Losartan Potassium) 50 Mg Tablet, 50 MG PO DAILY, TAB 03/16/24 Gabapentin (Gabapentin) 300 Mg/6 Ml (6 Ml) Solution, 300 MG PO BID, ML 03/16/24 Alprazolam (Alprazolam) 0.5 Mg Tablet, 0.5 MG PO BID PRN for ANXIETY/AGITATION, TAB 03/16/24 Folic Acid/Vitamin B Comp W-C (Alize-Walt Tablet) 0.8 Mg Tablet, 0.8 MG PO DAILY, TAB 03/16/24 Ondansetron (Ondansetron Odt) 4 Mg Tab.rapdis, 4 MG PO BID for 3 Days, TAB 03/05/24 Folic Acid/Vitamin B Comp W-C (Alize-Walt Tablet) 0.8 Mg Tablet, 0.8 MG PO DAILY, TAB 03/05/24 [Folate] No Conflict Check, 666 MCG PO DAILY 03/05/24 Tamsulosin HCl (Flomax) 0.4 Mg Cap.er.24h, 0.4 MG PO DAILY, CAPSULE. 03/05/24 Bisacodyl (Dulcolax 5Mg Tab) 5 Mg Tablet.dr, 5 MG PO HS, TAB 03/05/24 Baclofen (Baclofen) 10 Mg Tablet, 10 MG PO HS, TAB 03/05/24 Sacubitril/Valsartan (Entresto 24 mg-26 mg Tablet) 24 Mg-26 Mg Tablet, 1 EACH PO DAILY, TAB 03/05/24 Atorvastatin Calcium (LIPITOR) 40 Mg Tablet, 40 MG PO HS, TAB 03/05/24 Carvedilol (Carvedilol) 6.25 Mg Tablet, 6.25 MG PO DAILY, TAB 03/05/24 Docusate Sodium (Docusate Sodium) 100 Mg Tablet, 100 MG PO DAILY, TAB 03/05/24 Furosemide (Furosemide) 80 Mg Tablet, 80 MG PO T,TH,S,S, TAB 08/28/23 Past Medical History Past Medical History: CAD, High Cholesterol, Heart Disease, Hypertension, Renal Disese Additional Past Medical Hx: CKD Surgical History: Other Surgical History Other: CARDIAC CATH W/STENT, L UPPER ARM HD GRAFT/FISTULA Family History: Negative Social History: Lives with family Review of System Dictation Constitutional: Negative for fever,chills, and weight loss Eyes: Negative for injury, pain,redness, and discharge ENT: Negative for injury,pain or swelling Cardiovascular: Negative for chest pain, palpitations, and edema Respiratory: Positive for shortness of breath and cough Abdomen/GI: Negative for abdominal pain, nausea, vomiting, diarrhea, and constipation Back: Negative for injury and pain : Negative for injury, bleeding and discharge MS/Extremity: Negative for injury and deformity Skin: Negative for rash, and discoloration Neuro: Negative for headache, weakness, numbness, tingling, and seizure Psych: Negative for suicide ideation, homicidal ideation, and hallucinations Initial Vital Sign VS Vital Signs Date Time Temp Pulse Resp B/P (MAP) Pulse Ox O2 Delivery O2 Flow Rate FiO2 08/19/24 10:19 98.8 68 21 144/70 100 Nasal Cannula 3.0 08/19/24 11:02 21 Physical Exam Dictation General: awake, alert, patient looks uncomfortable Head/Face: Normocephalic, atraumatic Eyes: PERRL, EOMI, vision at baseline ENT: oral cavity clear, TMs clear, no signs of infection Neck: Trachea midline, supple, no nuchal rigidity Cardiovascular: RRR, normal S1/S2, No MRGs, no JVD Respiratory: Mild tachypnea, no respiratory distress Abdomen: Soft, non-tender, non-distended, normal bowel sounds, no guarding or rebound. Skin: Warm, dry, normal turgor, no rash MS/Extremity: Pulses equal, no cyanosis, neurovascular intact, FROM. HO Neuro: COAx4, GCS 15, strength 5/5, CN 2-12 intact, normal cerebellar exam, normal gait, Psych: Normal behavior, mood, and affect normal Results (Laboratory/Radiology) Laboratory/Radiology Laboratory Tests Test 2/24/25 10:59 08/19/24 11:05 White Blood Count 13.7 K/uL (4.8-10.8) H Red Blood Count 2.58 MIL/uL (4.50-6.20) L Hemoglobin 8.6 g/dL (14.0-18.0) L Hematocrit 26.2 % (42-54) L Mean Corpuscular Volume 101.6 fL (79-99) H Mean Corpuscular Hemoglobin 33.3 pg (27.0-33.0) H Mean Corpuscular Hemoglobin Concent 32.8 g/dL (32.0-36.0) Red Cell Distribution Width 17.3 % (11.0-15.5) H Platelet Count 178 K/uL (130-400) Mean Platelet Volume 11.2 fL (7.5-10.5) H Immature Granulocyte % (Auto) 0.6 % (0-1) Neutrophils (%) (Auto) 86.7 % (40.0-77.0) H Lymphocytes (%) (Auto) 6.3 % (21.0-51.0) L Monocytes (%) (Auto) 4.9 % (3.0-13.0) Eosinophils (%) (Auto) 0.9 % (0.0-8.0) Basophils (%) (Auto) 0.6 % (0.0-5.0) Neutrophils # (Auto) 11.9 K/uL (1.8-7.7) H Lymphocytes # (Auto) 0.9 K/uL (1.0-4.8) L Monocytes # (Auto) 0.7 K/uL (0.1-1.0) Eosinophils # (Auto) 0.12 K/uL (0.00-0.70) Basophils # (Auto) 0.08 K/uL (0.00-0.20) Absolute Immature Granulocyte (auto 0.08 K/uL (0-1) Nucleated Red Blood Cells 0.0 % (0.0-0.19) White Cell Morphology Comment See comments Prothrombin Time 11.4 SEC (9.6-11.6) Prothromb Time International Ratio 1.08 (0.85-1.15) Activated Partial Thromboplast Time 28.9 SEC (26.3-35.5) Sodium Level 135 mmol/L (136-145) L Potassium Level 6.3 mmol/L (3.5-5.1) *H Chloride Level 97 mmol/L (101-111) L Carbon Dioxide Level 27 mmol/L (21-32) Blood Urea Nitrogen 60 mg/dL (7-18) H Creatinine 11.0 mg/dL (0.5-1.3) *H Glomerular Filtration Rate Calc 5 mL/min (>90) Random Glucose 179 mg/dL (70-105) H Total Calcium 8.0 mg/dL (8.5-10.1) L Total Bilirubin 0.5 mg/dL (0.2-1.0) Direct Bilirubin 0.1 mg/dL (0.0-0.3) Aspartate Amino Transf (AST/SGOT) 17 U/L (10-37) Alanine Aminotransferase (ALT/SGPT) 17 U/L (12-78) Alkaline Phosphatase 100 U/L (50-136) Troponin I High Sensitivity 119 ng/L (4-75) *H B-Type Natriuretic Peptide 1820 pg/mL (0-100) H Total Protein 7.3 g/dL (6.0-8.3) Albumin 3.0 g/dL (3.5-5.0) L Influenza Type A Antigen Negative For Type A Influenza Type B Antigen Negative For Type B SARS-CoV-2 Antigen (Rapid) PRESUMPTIVE NEGATIVE Labs Reviewed?: Yes EKG Comment: EKG 08/19/2024 time 10:31 a.m. ventricular rate 73PR 274, QRS D 190, QT 465. Sinus rhythm, prolonged IN interval, left bundle-branch block, ST elevation secondary to IVCD. No STEMI X-RAY Comment: REASON: SOB ORDERING PHYSICIAN: ALISSA PATTERSON MD PROCEDURE: CXR1VW - CHEST 1VW CHEST 1VW HISTORY: Shortness of breath COMPARISON: 08/04/2024 FINDINGS: A frontal projection of the chest was obtained. Mild bilateral pulmonary infiltrates are seen may be related to mild pulmonary vascular congestion with possible superimposed pneumonitis. The heart is borderline enlarged. Degenerative changes are seen. IMPRESSION: 1. Mild bilateral pulmonary infiltrates are seen may be related to mild pulmonary vascular congestion with possible superimposed pneumonitis. DICTATED BY: AMISH HUNTER MD DATE: 08/19/24 1235 ED Course ED Course Orders Procedure Category Date Status Time Chest 1vw RAD 08/19/24 Resulted 10:27 12 Lead Ekg Tracing- EKG 08/19/24 Complete Technical 10:27 Troponin I High LAB 08/19/24 Complete Sensitivity 10:27 Basic Metabolic Panel LAB 08/19/24 Complete 10:27 Cbc With Differential LAB 08/19/24 Complete 10:27 B-Type Natriuretic LAB 08/19/24 Complete Peptide 10:27 Pt And Ptt LAB 08/19/24 Complete 10:31 Covid19 (Sars Antigen LAB 08/19/24 Complete Rapid) 10:31 Influenza Type A & B, LAB 08/19/24 Complete Rapid 11:06 Hepatic Function Panel LAB 08/19/24 Complete 10:27 Calcium Gluc 1gm PHA 08/19/24 Complete (Calcium Gluc 1gm 12:52 Sodium Bicarb 50meq PHA 08/19/24 Complete 50ml Vial (Sodium Bi 13:00 Dextrose 50%-Water PHA 08/19/24 Complete (D50w) 13:30 Insulin Regular, PHA 08/19/24 Complete Human 3ml (Humulin R 13:30 Nephrology Consult CONPHYSVC 08/19/24 Transmitted 13:25 Obtain Consent For CPOE 08/19/24 Transmitted Hemodialysi 13:32 *Nursing CPOE 08/19/24 Transmitted Communication: 13:32 In-Patient Dialysis DIAL 08/19/24 Transmitted Treatment 13:32 Dialysis-Inpatient DIAL 08/19/24 Transmitted 13:32 Initiate CRISTINA 08/19/24 In Process Hyperglycemia Protoco 14:30 Insulin Regular, PHA 08/19/24 In Process Human 3ml (Humulin R 16:30 Initiate Hypoglycemia CRISTINA 08/19/24 In Process Protocol 14:30 Dextrose 50%-Water PHA 08/19/24 In Process (D50w) 14:30 Glucagon 1mg Kit PHA 08/19/24 In Process (Glucagon 1mg Kit) 14:30 Magnesium 2gm Premix PHA 08/19/24 In Process 50ml (Magnesium 2gm 14:30 Ammonia LAB 08/20/24 Verified 04:00 Cbc With Differential LAB 08/20/24 Verified 04:00 Comprehensive LAB 08/20/24 Verified Metabolic Panel 04:00 Creatine Kinase, Total LAB 08/20/24 Verified 04:00 D-Dimer LAB 08/19/24 Logged 14:30 Hemoglobin A1c LAB 08/20/24 Verified 04:00 Hepatic Function Panel LAB 08/20/24 Verified 04:00 Lactic Acid LAB 08/20/24 Verified 04:00 Magnesium LAB 08/20/24 Verified 02:00 Procalcitonin LAB 08/20/24 Verified 04:00 Troponin I High LAB 08/20/24 Verified Sensitivity 04:00 Vital Signs(Adult CPOE 08/19/24 Transmitted Hospitalist) 14:32 Daily Weights CPOE 08/19/24 Transmitted 14:32 I&O Q Shift CPOE 08/19/24 Transmitted 14:32 Fever: Blood Cx X 2 CPOE 08/19/24 Transmitted 14:32 Diphenhydramine Hcl PHA 08/19/24 Logged (Benadryl Inj) 15:00 Acetaminophen 325 Tab PHA 08/19/24 Logged (Tylenol 325mg Tab 15:00 Acetaminophen 325 Tab PHA 08/19/24 Logged (Tylenol 325mg Tab 15:00 Ondansetron 4mg Inj PHA 08/19/24 Logged (Zofran 4mg Inj) 15:00 Zolpidem Tartrate 5 PHA 08/19/24 Logged Mg Tab (Ambien) 15:00 Mag/Alum/Simeth 30ml PHA 08/19/24 Logged (Maalox Plus 30ml) 15:00 Lactulose 20 Gm/30 Ml PHA 08/19/24 Logged Udcup (Constulose 15:00 Nitroglycerin 0.4mg PHA 08/19/24 Logged Sl Tab (Nitrostat) 15:00 Guaifenesin-Dm PHA 08/19/24 Logged 200/20mg 10ml 15:00 Famotidine 20mg Vial PHA 08/19/24 Logged (Pepcid 20mg Vial) 15:00 Nurse To Enter Home CPOE 08/19/24 Transmitted Medication 14:32 Admit Orders ADM 08/19/24 Transmitted 14:32 Activity: Bedrest CPOE 08/19/24 Transmitted With Brp 14:32 Renal Dialysis Diet DIET 08/19/24 Transmitted Dinner Heparin 5,000 Unit PHA 08/19/24 Logged Vial (Heparin 5,000 U 21:00 Apply Scds CPOE 08/19/24 Transmitted 14:32 Acetaminophen 325 Tab PHA 08/19/24 Logged (Tylenol 325mg Tab 15:00 Ketorolac PHA 08/19/24 Logged Tromethamine 15mg/Ml 15:00 Ultram 50mg Q6hr Prn PHA 08/19/24 Transmitted Pain 15:00 Percocet 5/325mg Q6h PHA 08/19/24 Transmitted Prn Pain 15:00 Urinalysis LAB 08/19/24 Transmitted W/Microscopic 14:32 Case Management CM 08/19/24 Transmitted Evaluation 14:32 Rocephin 2gm Ivpb Q24h PHA 08/19/24 Transmitted 15:00 Hydralazine 10mg Iv PHA 08/19/24 Transmitted 15:00 Famotidine 20mg Vial PHA 08/19/24 Transmitted (Pepcid 20mg Vial) 21:00 Nephrology Consult CONPHYSVC 08/19/24 Transmitted 14:32 Current Medications Medications (Trade) Dose Ordered Sig/Edita Route PRN Reason Start Time Stop Time Status Last Admin Dose Admin Calcium Gluconate (Calcium Gluc 1gm Vial) 1 gm PROTOCOL STAT IVPB 08/19/24 12:52 08/19/24 12:53 DC 08/19/24 13:06 Dextrose (D50w) 50 ml AD PRN IV HYPOGLYCEMIA PROTOCOL 08/19/24 14:30 09/18/24 14:29 Dextrose (D50w) 50 ml ONCE ONCE IV 08/19/24 13:30 08/19/24 13:31 DC 08/19/24 13:22 Glucagon (Glucagon 1mg Kit) 1 mg AD PRN IM HYPOGLYCEMIA PROTOCOL 08/19/24 14:30 09/18/24 14:29 Insulin Human Regular (humuLIN R 100 UNIT/ML 3ML) 5 unit ONCE ONCE IV 08/19/24 13:30 08/19/24 13:31 DC 08/19/24 13:22 Insulin Human Regular (humuLIN R 100 UNIT/ML 3ML) INSULIN SLIDING SCAL... ACHS SQ 08/19/24 16:30 09/18/24 16:29 Magnesium Sulfate 50 ml @ 0 mls/hr PROTOCOL PRN IV other 08/19/24 14:30 09/18/24 14:29 Sodium Bicarbonate (Sodium Bicarb 50meq 50ml Vial) 50 meq ONCE ONCE IV 08/19/24 13:00 08/19/24 13:01 DC 08/19/24 13:06 Vital Signs Date Time Temp Pulse Resp B/P (MAP) Pulse Ox O2 Delivery O2 Flow Rate FiO2 08/19/24 12:43 67 24 154/75 98 Room Air* 0 21 08/19/24 11:02 98.2 71 24 155/81 97 Room Air* 0 21 08/19/24 10:19 98.8 68 21 144/70 100 Nasal Cannula 3.0 Medical Decision Making MDM MDM: Differential diagnosis: Fluid overload, ESRD, electrolyte imbalance Rationale: Tests considered and ordered secondary to shared decision making in clude: labs, ECG and radiology Risk of complication and/or morbidity or mortality of patient management: None Medications-Per medication reconciliation Need for hospitalization: Patient does meet criteria for hospitalization. Need for emergency major/minor surgery: No There are no social concerns with this patient. I independently interpreted the test that were performed, results were reviewed by me and considered findings on radiology if ordered. Medical management and examination interpretation discussions were had by me with other qualified healthcare professionals as indicated for the patient's care. Critical Care Note Critical Time: other (Total critical care time was 33 minutes. Excluding time for procedures. Management of critically ill patient with concern for acute decompensation. Management included interpretation of laboratory values and imaging, hemodynamics, time for consultation with consultants and admitting physician.) DX & DISP Disposition: Inpatient Decision to Admit Date: Aug 19, 2024 Departure Impression: Primary Impression: Hyperkalemia Additional Impressions: End stage renal disease, Shortness of breath Condition: Stable Referrals: STAN KYLE MD (PCP) ALISSA PATTERSON MD Aug 19, 2024 14:58
[2024-08-19] MEDS ORDERED: traMADol HCL 50 MG TABLET PO PRN (15:00)
[2024-08-19] MEDS ORDERED: FAMOTIDINE 20MG VIAL IV PRN (15:00)
[2024-08-19] MEDS ORDERED: DiphenhydrAMINE HCL 50 MG/ML VIAL IV PRN (15:00)
[2024-08-19] MEDS ORDERED: oxyCODONE/aceTAMIN 5/325MG TAB PO PRN (15:00)
[2024-08-19] MEDS ORDERED: cefTRIAXone 1G VIAL 2 GM in 0.9%NACL 100ML 100 ML IV SCH (15:00)
[2024-08-19] MEDS ORDERED: ketOROlac 15MG/ML VIAL (15MG/ML) IV PRN (15:00)
[2024-08-19] MEDS ORDERED: ondanSETRON 4MG INJ IV PRN (15:00)
[2024-08-19] MEDS ORDERED: NITROGLYCERIN 0.4 MG SL TAB SL PRN (15:00)
[2024-08-19] MEDS ORDERED: guaiFENesin-DM 200/20MG 10ML PO PRN (15:00)
[2024-08-19] MEDS ORDERED: LACTULOSE 20 GM/30 ML UDCUP PO PRN (15:00)
[2024-08-19] MEDS ORDERED: MAG/ALUM/SIMETH 30 ML UDCUP PO PRN (15:00)
[2024-08-19] MEDS ORDERED: ZOLPidem TARTrate 5 MG TAB PO PRN (15:00)
[2024-08-19] MEDS ORDERED: acetaMINOPHEN 325 MG TAB PO PRN ×3 (15:00)
[2024-08-19] MEDS: INSULIN humuLIN R 100 UNIT/ML 3ML SQ SCH (16:30)
--- NOTE | 2024-08-19 16:36 | NUR ---
FSBG 75. PATIENT EATING AT THIS TIME.
[2024-08-19] MEDS: 0.9%NACL 1000ML 1,000 ML IV ONE (21:27)
[2024-08-19] MEDS: FAMOTIDINE 20MG VIAL IV SCH (21:39)
[2024-08-19] MEDS: HEParin 5,000 UNIT VIAL SQ SCH (21:40)
[2024-08-19] MEDS ORDERED: GABA300C PO (22:30)
[2024-08-19] MEDS ORDERED: SIME180C61 PO (22:30)
[2024-08-19] MEDS ORDERED: CARV25TA PO (22:30)
[2024-08-19] MEDS ORDERED: ASPI-1443 PO (22:30)
[2024-08-19] MEDS ORDERED: SUCR500T PO (22:30)
[2024-08-19] MEDS ORDERED: TICA90TA PO (22:30)
[2024-08-20] VITALS (9 sets, daily range): BP systolic 133–177; BP diastolic 67–95; PULSE 67–85; RESP 18–24; TEMP 98–98.5; O2SAT 91–98
[2024-08-20] MEDS: hydrALAZine 20MG/ML VIAL IV PRN (00:46)
--- NOTE | 2024-08-20 02:59 | CONS ---
REFERRING PHYSICIAN: Mariano Luis MD REASON FOR CONSULTATION: Respiratory distress, ESRD and volume overload. HISTORY OF PRESENT ILLNESS: The patient is a 59-year-old male with a history of diabetes mellitus and hypertension, has a history of end-stage renal disease, on dialysis 3 times a week. The patient recently admitted to outside hospital, underwent coronary catheterization with intervention. The patient presented to the hospital with increasing shortness of breath, orthopnea. The patient has had very similar admissions in the past. The patient's chest x-ray consistent with pulmonary vascular congestion and he is being seen for urgent dialysis. PAST MEDICAL HISTORY: Diabetes mellitus, hypertension, ESRD, coronary artery disease. PAST SURGICAL HISTORY: Coronary catheterization with intervention, AV access. SOCIAL HISTORY: He lives independently. There is no active tobacco use. FAMILY HISTORY: There is no renal disease in the family. ALLERGIES: HE HAS AN ALLERGY TO DILAUDID. MEDICATIONS: All noted. REVIEW OF SYSTEMS: GENERAL: The patient is feeling weak and tired. HEENT: No change in vision. No change in hearing. CARDIOVASCULAR: There is no current chest pain or palpitations. PULMONARY: No shortness of breath. GASTROINTESTINAL: The patient is tolerating diet. MUSCULOSKELETAL: Complains of weakness. NEUROLOGIC: No history of seizures or focal deficits. PSYCHIATRIC: No history of hallucinations or psychosis. ENDOCRINE: Diabetes mellitus. No history of thyroid disease. HEME: History of anemia. No history of malignancy. PHYSICAL EXAMINATION: VITAL SIGNS: Blood pressure 135/72, and pulse 60s. GENERAL: He is a chronically ill male, older than appearing age. HEENT: Head is atraumatic. Pupils are equal, roving to light. Oropharynx is without exudate. Nares clear. NECK: There is no JVP. There is no thyromegaly, no mass. CARDIOVASCULAR: Regular. There is no S3, S4 gallop. LUNGS: Coarse with equal thoracic movement. ABDOMEN: Soft, nondistended, nontender. EXTREMITIES: Reveal no clubbing, no cyanosis. NEUROLOGIC: He is awake. He is alert. He is oriented. SKIN: Reveals no rash or nodules. BACK: There is no CVA tenderness, no back deformities. LABORATORY DATA: Hemoglobin 8.6, hematocrit 26, white cell count is 13,000. Sodium is 135, potassium is 5, BUN 60, creatinine 11. DIAGNOSTIC DATA: Chest x-ray is consistent with pulmonary vascular congestion. IMPRESSION: * Pulmonary vascular congestion, volume overload. * Diabetes mellitus. * Hypertension. * Hyperkalemia. * End-stage renal disease. PLAN: The patient will receive dialysis on the day of this consultation. We will continue with maximal ultrafiltration as blood pressure allows. I have discussed with the patient in regards to his poor compliance not only with his general medical care but also with his fluid restriction. The patient will be started on Epogen for the anemia. We will obtain a phosphorus level in the a.m. We will continue to follow closely. Once the patient is discharged, he will follow up at the dialysis unit. TID: [id number] RECEIPT: [id number]
[2024-08-20 04:03] LABS: BASOPHILS # (AUTO) 0.06 K/uL (0.00-0.20); BASOPHILS % (AUTO) 0.5 % (0.0-5.0); EOSINOPHILS # (AUTO) 0.15 K/uL (0.00-0.70); EOSINOPHILS % (AUTO) 1.3 % (0.0-8.0); HEMATOCRIT 23.5 % (42-54); IMMATURE GRANULOCYTE ABSOLUTE 0.05 K/uL (0-1); LYMPHOCYTES % (AUTO) 8.7 % (21.0-51.0); MEAN CORPUSCULAR HEMOGLOBIN 33.6 pg (27.0-33.0); MEAN CORPUSCULAR HGB CONC 33.6 g/dL (32.0-36.0); MONOCYTES # (AUTO) 0.6 K/uL (0.1-1.0); NEUTROPHILS # (AUTO) 9.4 K/uL (1.8-7.7); NEUTROPHILS % (AUTO) 84.1 % (40.0-77.0); PLATELET COUNT (AUTO) 169 K/uL (130-400); RED BLOOD CELL COUNT(AUTO) 2.35 MIL/uL (4.50-6.20); RED CELL DISTRIBUTION WIDTH 17.7 % (11.0-15.5); WHITE BLOOD COUNT (AUTO) 11.2 K/uL (4.8-10.8)
[2024-08-20 04:34] LABS: ALANINE AMINOTRANSFERASE 12 U/L (12-78); ALBUMIN 2.7 g/dL (3.5-5.0); AMMONIA < 10 umol/L (11-32); ASPARTATE AMINOTRANSFERASE 12 U/L (10-37); BILIRUBIN,DIRECT 0.2 mg/dL (0.0-0.3); BILIRUBIN,TOTAL 0.6 mg/dL (0.2-1.0); CARBON DIOXIDE 31 mmol/L (21-32); CHLORIDE 97 mmol/L (101-111); CREATINE KINASE, TOTAL 88 U/L (21-232); GLOMERULAR FILTR. RATE CALC 7 mL/min (>90); GLUCOSE,RANDOM 90 mg/dL (70-105); PHOSPHORUS 6.5 mg/dL (2.5-4.9); POTASSIUM 4.2 mmol/L (3.5-5.1); SODIUM SERUM 138 mmol/L (136-145); TOTAL PROTEIN, SERUM 7.6 g/dL (6.0-8.3); UREA NITROGEN, BLOOD 45 mg/dL (7-18)
[2024-08-20 04:37] LABS: CREATININE 8.5 mg/dL (0.5-1.3)
[2024-08-20 04:50] LABS: HEMOGLOBIN A1C 6.7 % (4.0-6.0)
[2024-08-20 08:48] LABS: APPEARANCE,URINE CLEAR (CLEAR); BILIRUBIN,URINE NEGATIVE (NEGATIVE); COLOR,URINE LIGHT-YELLOW (YELLOW); GLUCOSE, URINE (UA) 70 mg/dL (NEGATIVE); KETONES,URINE NEGATIVE (NEGATIVE); LEUKOCYTE ESTERASE ,URINE NEGATIVE Leu/uL (NEGATIVE); NITRATE,URINE NEGATIVE (NEGATIVE); PROTEIN,URINE 600 mg/dL (NEGATIVE); UROBILINOGEN,URINE 0.2 mg/dL (0.2-1.0)
[2024-08-20 09:04] LABS: BACTERIA,URINE MOD /HPF (None Seen); OTHER CASTS, URINE 1 /LPF (None Seen)
--- NOTE | 2024-08-20 09:07 | HMCIMG ---
NM PULMONARY/LUNG VENT/PERF VQ HISTORY: Elevated d-dimer COMPARISON: None TECHNIQUE: Perfusion lung imaging study was performed with 5 mCi of technetium macroaggregated through intravenous route. FINDINGS: There is no evidence of segmental or subsegmental perfusion defect. Nonsegmental perfusion defects are also present. IMPRESSION: 1. Normal ventilation perfusion lung imaging study.
--- NOTE | 2024-08-20 12:00 | PN ---
SUBJECTIVE: A 59-year-old male with history of diabetes mellitus and hypertension. He has a history of known coronary artery disease. The patient underwent recent coronary catheterization with intervention. The patient presented to the hospital with increasing shortness of breath and orthopnea. The patient did receive urgent dialysis on the day of admission. The patient with 4 liters of ultrafiltration and pulmonary symptoms are much improved. The patient is being seen as a followup visit for all of the above. REVIEW OF SYSTEMS: GENERAL: He is feeling improved. HEENT: No change in vision. No change in hearing. CARDIOVASCULAR: No current chest pain or palpitations. PULMONARY: As described above. GASTROINTESTINAL: The patient is tolerating a diet. MUSCULOSKELETAL: Complains of weakness. PHYSICAL EXAMINATION: VITAL SIGNS: Blood pressure 134/95, pulse 60s. GENERAL: He is a chronically ill male, older than appearing. HEENT: Head is atraumatic. Pupils equal, roving to light. Oropharynx is without exudate. Nares clear. NECK: There is no JVP. There is no thyromegaly, no mass. CARDIOVASCULAR: Regular. There is no S3, S4 gallop. LUNGS: Coarse with equal thoracic movement. ABDOMEN: Soft, nondistended, nontender. EXTREMITIES: Reveal no clubbing, no cyanosis. NEUROLOGIC: He is awake. He is alert. LABORATORY DATA: Sodium 138, potassium is 4, creatinine is 8. Troponin is 89. Hemoglobin 7.9, hematocrit 23. IMPRESSION: * Respiratory distress, volume overload. * End-stage renal disease. * Diabetes mellitus. * Hypertension. * Anemia. PLAN: The patient's pulmonary symptoms are much improved. The patient with 4 liters of ultrafiltration with his dialysis. The patient has been counseled in regards to his general medical care including his fluid restriction. The patient to continue dialysis on a Monday, Monday, Monday schedule. The patient can safely be discharged from renal standpoint. If the patient is discharged, the patient will follow up at the dialysis unit. TID: [id number] RECEIPT: [id number]
--- NOTE | 2024-08-20 13:28 | PN ---
[facility] PROGRESS NOTE Date of Service: Aug 20, 2024 Time of Service: 13:27 SUBJECTIVE: [ ] + 08/20/23 patient was seen and examined. Case discussed with the RN. He is feeling better after dialysis. He had one episode of shortness for breath which she thought was related to Brilinta but likely related to volume overload. He has doing better. Continue to monitor labs. Appreciate Cardiology REVIEW OF SYSTEMS CONSTITUTIONAL: Denies fevers, chills, or night sweats. No unintentional weight loss reported. NEUROLOGICAL: Denies headache, amaurosis fugax, motor weakness, sensory deficit, vertigo/spinning sensation, gait abnormalities, or tremors. ENT: No hearing loss, otalgia, otorrhea, rhinitis, rhinorrhea, hoarseness, or sore throat. CARDIOVASCULAR: Denies any exertional angina, dyspnea on exertion, orthopnea, paroxysmal nocturnal dyspnea, palpitations, life-threatening arrhythmias, claudication. PULMONARY: Denies any cough, phlegm/sputum, hemoptysis, pleuritic chest pain. Patient complains of shortness of breaths SLEEP: Denies morning headaches, daytime somnolence or napping. Denies difficulty falling asleep, staying asleep, waking from sleep. Denies knowledge of snoring. GASTROINTESTINAL: Denies any type of dysphagia to either liquids or solids. Denies nausea, vomiting, pyrosis, early satiety, abdominal pain, diarrhea, constipation, or changes in stool consistency or caliber. Denies coffee-ground emesis, hematemesis, hematochezia, or melanotic stools. GENITOURINARY: Denies frequency, urgency, nocturia, hematuria or incontinence (Storage/Irritative symptoms.) Low urinary stream, straining to void, urinary intermittency or hesitancy, splitting of the voiding stream, terminal dribbling. ENDOCRINOLOGIC: Denies polyuria, polydipsia, polyphagia or heat/cold intolerances. HEMATOLOGIC: Denies thrombophilia/previous clots, or coagulopathy/bleeding dis orders. ONCOLOGIC: Denies personal history of malignancy. DERMATOLOGIC: Denies rashes or pruritus. PSYCHIATRIC: Denies any suicidal or homicidal ideation. Denies hallucinations. PHYSICAL EXAM GENERAL APPEARANCE: The patient is awake, alert, and oriented, in no acute cardiopulmonary distress. NEUROLOGICAL: Cranial nerves II-XII grossly intact. Motor is 5/5 in bilateral upper and lower extremities proximal to distal. No sensory deficits. HEENT: Face is symmetric. Pupils are equal and reactive. Extraocular movements are intact. NECK: Supple. No JVD. No thyromegaly. No submental, submandibular, pre- /postauricular, occipital or supraclavicular lymphadenopathy. CHEST: Normal chest expansion. No Telemetry. LUNGS: Absence of any rales, rhonchi or any wheezing. CARDIOVASCULAR: Regular. S1 and S2 normal. No appreciable rubs, murmurs or gallops. ABDOMEN: Soft, nontender, and nondistended. There is no rebound, voluntary guarding, or rigidity. : Deferred. No Ward. EXTREMITIES: Non-edematous and not cyanotic. No clubbing. Good capillary refill. SKIN: No skin breakdown. Vital Signs (last 8hr) Date Time Temp Pulse Resp B/P (MAP) Pulse Ox O2 Delivery O2 Flow Rate FiO2 08/20/24 11:34 98.4 68 18 134/95 97 Room Air 08/20/24 08:35 98 Nasal Cannula* 2 28 08/20/24 08:07 98.4 67 18 136/75 98 Room Air LABS: Laboratory: Test 08/20/24 11:11 08/20/24 08:15 08/20/24 03:56 08/19/24 15:40 Range/Units Whole Blood Glucose 146 #H 70-110 MG/DL Urine Color LIGHT-YELLOW YELLOW Urine Appearance CLEAR CLEAR Urine pH 8.0 5.0-8.0 Urine Specific Stanton 1.008 1.001-1.031 Urine Protein 600 H NEGATIVE mg/dL Urine Glucose (UA) 70 H NEGATIVE mg/dL Urine Ketones NEGATIVE NEGATIVE mg/dL Urine Occult Blood +- (TRACE) H NEGATIVE Urine Nitrate NEGATIVE NEGATIVE Urine Bilirubin NEGATIVE NEGATIVE mg/dL Urine Urobilinogen 0.2 0.2-1.0 mg/dL Urine Leukocyte Esterase NEGATIVE NEGATIVE Rico/uL Urine RBC 2-5 H 0-1 /HPF Urine WBC 2-5 H 0-1 /HPF Urine Bacteria MOD None Seen /HPF Urine Hyaline Casts 2-5 H 0-1 /LPF /LPF Urine Other Casts 1 None Seen /LPF White Blood Count 11.2 H 4.8-10.8 K/uL Red Blood Count 2.35 L 4.50-6.20 MIL/uL Hemoglobin 7.9 L 14.0-18.0 g/dL Hematocrit 23.5 L 42-54 % Mean Corpuscular Volume 100.0 H 79-99 fL Mean Corpuscular Hemoglobin 33.6 H 27.0-33.0 pg Mean Corpuscular Hemoglobin Concent 33.6 32.0-36.0 g/dL Red Cell Distribution Width 17.7 H 11.0-15.5 % Platelet Count 169 130-400 K/uL Mean Platelet Volume 10.2 7.5-10.5 fL Immature Granulocyte % (Auto) 0.4 0-1 % Neutrophils (%) (Auto) 84.1 H 40.0-77.0 % Lymphocytes (%) (Auto) 8.7 L 21.0-51.0 % Monocytes (%) (Auto) 5.0 3.0-13.0 % Eosinophils (%) (Auto) 1.3 0.0-8.0 % Basophils (%) (Auto) 0.5 0.0-5.0 % Neutrophils # (Auto) 9.4 H 1.8-7.7 K/uL Lymphocytes # (Auto) 1.0 1.0-4.8 K/uL Monocytes # (Auto) 0.6 0.1-1.0 K/uL Eosinophils # (Auto) 0.15 0.00-0.70 K/uL Basophils # (Auto) 0.06 0.00-0.20 K/uL Absolute Immature Granulocyte (auto 0.05 0-1 K/uL Nucleated Red Blood Cells 0.0 0.0-0.19 % Sodium Level 138 136-145 mmol/L Potassium Level 4.2 3.5-5.1 mmol/L Chloride Level 97 L 101-111 mmol/L Carbon Dioxide Level 31 21-32 mmol/L Blood Urea Nitrogen 45 H 7-18 mg/dL Creatinine 8.5 *H 0.5-1.3 mg/dL Glomerular Filtration Rate Calc 7 >90 mL/min Random Glucose 90 70-105 mg/dL Hemoglobin A1c 6.7 H 4.0-6.0 % Estimated Average Glucose (eAG) 146 H 70-126 mg/dL Lactic Acid Level 1.1 0.8-2.5 mmol/L Total Calcium 8.4 L 8.5-10.1 mg/dL Phosphorus Level 6.5 H 2.5-4.9 mg/dL Magnesium Level 1.80 1.80-2.40 mg/dL Total Bilirubin 0.6 0.2-1.0 mg/dL Direct Bilirubin 0.2 # 0.0-0.3 mg/dL Aspartate Amino Transf (AST/SGOT) 12 10-37 U/L Alanine Aminotransferase (ALT/SGPT) 12 # 12-78 U/L Alkaline Phosphatase 88 50-136 U/L Ammonia < 10 L 11-32 umol/L Total Creatine Kinase 88 # 21-232 U/L Troponin I High Sensitivity 89.2 *H 4-75 ng/L Total Protein 7.6 6.0-8.3 g/dL Albumin 2.7 L 3.5-5.0 g/dL Procalcitonin 0.33 0.05-0.5 ng/mL D-Dimer Quantitative (PE/DVT) 1375 *H 0-500 ng/mL Test 08/19/24 11:05 08/19/24 10:59 Range/Units Influenza Type A Antigen Negative For Type A NEGATIVE Influenza Type B Antigen Negative For Type B NEGATIVE SARS-CoV-2 Antigen (Rapid) PRESUMPTIVE NEGATIVE NEGATIVE White Cell Morphology Comment See comments Prothrombin Time 11.4 9.6-11.6 SEC Prothromb Time International Ratio 1.08 0.85-1.15 Activated Partial Thromboplast Time 28.9 26.3-35.5 SEC B-Type Natriuretic Peptide 1820 H 0-100 pg/mL Current Medications Medications (Trade) Dose Ordered Sig/Edita Route PRN Reason Start Time Stop Time Status Last Admin Dose Admin Acetaminophen (TYLenol 325MG TAB) 650 mg Q4H PRN PO MILD PAIN (1-3) 08/19/24 15:00 09/18/24 14:59 Acetaminophen (TYLenol 325MG TAB) 650 mg Q6H PRN PO MILD PAIN (1-3) 08/19/24 15:00 08/19/24 14:38 DC Acetaminophen (TYLenol 325MG TAB) 650 mg Q6H PRN PO TEMPERATURE GREATER THAN 101.5 08/19/24 15:00 09/18/24 14:59 Al Hydroxide/Mg Hydroxide (MAALox PLUS 30ML) 30 ml Q6H PRN PO INDIGESTION 08/19/24 15:00 09/18/24 14:59 Alprazolam (XANax 0.5MG) 0.5 mg BID PRN PO ANXIETY/AGITATION 08/20/24 13:30 09/19/24 13:29 Aspirin (Aspirin 81mg Ec Tab) 81 mg DAILY PO 08/21/24 09:00 09/20/24 08:59 Atorvastatin Calcium (LIPItor 40MG) 40 mg HS PO 08/20/24 21:00 09/19/24 20:59 UNV Bisacodyl (DulcoLAX 5MG TAB) 5 mg HS PO 08/20/24 21:00 09/19/24 20:59 Calcium Gluconate (Calcium Gluc 1gm Vial) 1 gm PROTOCOL STAT IVPB 08/19/24 12:52 08/19/24 12:53 DC 08/19/24 13:06 1 GM Carvedilol (Coreg 25MG) 25 mg BID PO 08/20/24 21:00 09/19/24 20:59 Ceftriaxone Sodium 2 gm/ Sodium Chloride 100 ml @ 200 mls/hr Q24H IV 08/19/24 15:00 08/19/24 14:38 DC Dextrose (D50w) 50 ml AD PRN IV HYPOGLYCEMIA PROTOCOL 08/19/24 14:30 09/18/24 14:29 Diphenhydramine HCl (BENAdryl INJ) 25 mg Q6H PRN IV SEVERE ITCHING/RASH 08/19/24 15:00 09/18/24 14:59 Docusate Sodium (COLace 100MG CAP) 100 mg BID PO 08/20/24 21:00 09/19/24 20:59 Epoetin Shaw-epbx (Retacrit) 10,000 unit QMOWEFR[DIALYSIS] SQ 08/21/24 16:00 09/20/24 15:59 Famotidine (Pepcid 20mg Vial) 20 mg BID PRN IV NAUSEA/VOMITING 08/19/24 15:00 08/19/24 14:38 DC Famotidine (Pepcid 20mg Vial) 20 mg Q48H IV 08/19/24 21:00 09/18/24 20:59 08/19/24 21:39 20 MG Furosemide (LASix 80MG TAB) 80 mg AM PO 08/21/24 09:00 09/20/24 08:59 Gabapentin (NEURontin 300 MG CAP) 300 mg BID PO 08/20/24 21:00 09/19/24 20:59 UNV Glucagon (Glucagon 1mg Kit) 1 mg AD PRN IM HYPOGLYCEMIA PROTOCOL 08/19/24 14:30 09/18/24 14:29 Guaifenesin/ Dextromethorphan (RobiTUSSin DM 200/20MG 10ML) 10 ml Q4H PRN PO COUGH 08/19/24 15:00 09/18/24 14:59 Heparin Sodium (Porcine) (HEParin 5,000 UNIT VIAL) 5,000 unit BID SQ 08/19/24 21:00 09/18/24 20:59 08/20/24 08:27 5,000 UNIT Hydralazine HCl (APRESOLine 20MG INJ) 10 mg Q6H PRN IV For:SBP above 160;DBP above 90 08/19/24 15:00 09/18/24 14:59 08/20/24 00:46 10 MG Insulin Human Regular (humuLIN R 100 UNIT/ML 3ML) INSULIN SLIDING SCAL... ACHS SQ 08/19/24 16:30 09/18/24 16:29 Ketorolac Tromethamine (toRADol) 15 mg Q8H PRN IV MODERATE PAIN (4-6) 08/19/24 15:00 08/19/24 14:38 DC Lactulose (Constulose 20gm/ 30ml Udcup) 20 gm BID PRN PO CONSTIPATION 08/19/24 15:00 09/18/24 14:59 Losartan Potassium (CozAAR 50 mg TAB) 50 mg DAILY PO 08/21/24 09:00 09/20/24 08:59 Magnesium Sulfate 50 ml @ 0 mls/hr PROTOCOL PRN IV other 08/19/24 14:30 09/18/24 14:29 Meclizine HCl (ANTIvert 25 mg) 25 mg HSPRN PRN PO DIZZINESS 08/20/24 13:30 09/19/24 13:29 UNV Miscellaneous Medication (Cetirizine HCl ) 10 mg DAILY PO 08/21/24 09:00 09/20/24 08:59 UNV Miscellaneous Medication (Folic Acid/ Vitamin B Comp W-C (Alize-Walt Tablet)) 0.8 mg DAILY PO 08/21/24 09:00 09/20/24 08:59 UNV Miscellaneous Medication (Hydralazine HCl ) 50 mg TID PO 08/20/24 14:00 09/19/24 13:59 UNV Miscellaneous Medication (Omeprazole ) 40 mg AM PO 08/21/24 09:00 09/20/24 08:59 UNV Miscellaneous Medication (Simethicone ) 180 mg BID PRN PO GI GAS 08/20/24 13:30 09/19/24 13:29 UNV Miscellaneous Medication (Sucroferric Oxyhydroxide (Velphoro)) 3 tab TID PO 08/20/24 14:00 09/19/24 13:59 UNV Miscellaneous Medication ([Folate] ) 666 mcg DAILY PO 08/21/24 09:00 09/20/24 08:59 UNV Nitroglycerin (Nitrostat) 0.4 mg PROTOCOL PRN SL CHEST PAIN 08/19/24 15:00 09/18/24 14:59 Ondansetron HCl (zoFRAN 4MG INJ) 4 mg Q6H PRN IV NAUSEA/VOMITING 08/19/24 15:00 09/18/24 14:59 Ondansetron HCl (zoFRAN 4MG ODT) 4 mg BID PO 08/20/24 21:00 09/19/24 20:59 UNV Oxycodone/ Acetaminophen (perCOCET) 1 tab Q6H PRN PO SEVERE PAIN (7-10) 08/19/24 15:00 08/26/24 14:59 Tamsulosin HCl (FloMAX) 0.4 mg DAILY PO 08/21/24 09:00 09/20/24 08:59 UNV Ticagrelor (BRILinta) 90 mg BID PO 08/20/24 21:00 09/19/24 20:59 UNV Tramadol HCl (UltRAM) 50 mg Q6H PRN PO MODERATE PAIN (4-6) 08/19/24 15:00 08/19/24 14:41 DC Zolpidem Tartrate (AmbIEN) 5 mg HS PRN PO INSOMNIA 08/19/24 15:00 09/18/24 14:59 DIAGNOSTICS / RADIOLOGY: [ ] ASSESSMENT: [ Acute hypoxic respiratory failure POA ESRD needing dialysis POA Fluid overload POA Acute systolic and diastolic heart failure 2D echo 50 to 55% stage II diastolic dysfunction 03/05/2024 POA Recent fall POA Iron-deficiency anemia POA Multifactorial anemia due to above POA Hyperlipidemia Uncontrolled diabetes mellitus type 2 with hypoglycemia POA Uncontrolled hypertension POA Recent cardiac stents placement on Brilinta three weeks ago POA Morbid obesity Glaucoma Neuropathy Irritable bowel syndrome Little urination due to ESRD dialysis ] PLAN: [ Admit to: Medical-surgical floor Consults: Materials Engineering Technician Antibiotics: Rocephin Tests: None at this moment NEURO: Minimize central acting medications as possible. Fall Precautions. Well lighted room through the day and minimize interruptions through the night to prevent acute delirium. PULMONARY: Chest x-ray showed infiltrate vascular congestion Supplemental 02 as needed BiPAP as necessary, for respiratory distress Titrate Fio2 to keep Spo2 > or = 90% DuoNebs and CPT as needed IS hourly while awake for pulmonary hygiene Out of bed to chair as tolerated VAP Bundle Maintain aspiration precautions at all times CARDIOVASCULAR: Most recent 2D echo 03/05/2024 showed 50 to 55% stage II diastolic dysfunction Follow hemodynamics. Vital signs per facility protocol GI & NUTRITION: Continue nutritional support Aspirations precautions Prokinetic agents and laxatives as needed KIDNEYS & ELECTROLYTES: Strict monitoring of intake and output Daily weights Avoid nephrotoxic agents Monitor electrolytes and replace as needed Goal urine output of 30mL/hr or 0.5mL/kg/hr Medications to be dosed according to renal function. Avoid contrast if possible ENDOCRINE: Maintain blood glucose between 100-180 at all times. Insulin sliding scale for blood glucose management Hypoglycemia and hyperglycemia protocol in place INFECTIOUS DISEASE: Trend temperature, WBC and procalcitonin level Follow cultures, deescalate antibiotics as soon as possible. Panculture if new onset fever HEMATOLOGY & COAGULATION: Monitor H&H. Keep Hgb > 7 Transfuse 1 unit of PRBC for Hgb < 7 Transfuse 1 pack of platelets of platelets < 20, 000 Watch for any signs and symptoms of bleeding SKIN: Pressure ulcer prevention per facility protocol Specialty mattress as needed Treatment plan discussed with patient and family at the bedside Medications to be reconciled once obtained by patient and/or family and available to be reconciled in computer p.r.n. medication for pain nausea and vomiting Questions were answered We will continue to monitor the patient closely Cna Gna for disposition Rehab: PT/OT GI: PPI DVT: SCD's Code Status: Full Resuscitation Disposition: TBD Prognosis: Guarded ] SIRIA BAUMAN MD Aug 20, 2024 13:28
[2024-08-20] MEDS ORDERED: mecliZINE HCL 25 MG TABLET PO PRN (13:30)
[2024-08-20] MEDS ORDERED: ALPRAZolam 0.5 MG TABLET PO PRN (13:30)
[2024-08-20] MEDS ORDERED: SIMETHICONE 80 MG TAB.CHEW PO PRN (14:00)
[2024-08-20] MEDS: SUCROFERRIC OXYHYDROXIDE PO SCH (14:00)
[2024-08-20] MEDS: hydrALAZine 25MG TABLET PO SCH (14:38)
--- NOTE | 2024-08-20 14:56 | NUR ---
DCP Patient states lives with Rachel Treviño, Spouse [phone] and two children, in a house with walk in shower. States disabled, remains independent and drives self. States able to complete ADL's on his own. has a cane and shower chair. Denies home health services. [facility] has 15 hours per week of home care provider services. Attends [facility] Mondays, Wednesdays and Fridays. PCP - Tao Logan MD Pharmacy - [facility] [place]. Upon discharge, Rachel Treviño, Spouse [phone] and assist with care as needed. Addendum: 08/20/24 at 1506 by JERAD HALEY RN CM Amended: Links added.
[2024-08-20 17:02] LABS: HEPATITIS B CORE AB TOTAL Non-Reactive (Nonreactive); HEPATITIS B SURFACE ANTIGEN Non-Reactive (Nonreactive)
--- NOTE | 2024-08-20 18:14 | NUR ---
Discharge Update: Patient given Brilinta coupon. Plan is for discharge home today.
[2024-08-20] MEDS: atorVAStatin 40 MG TABLET PO SCH (20:29)
[2024-08-20] MEDS: ondanSETRON ODT 4MG TAB PO SCH (20:30)
[2024-08-20] MEDS: carVEDIlol 25 MG TABLET PO SCH (20:32)
[2024-08-20] MEDS: TICAGrelor 90 MG TABLET PO SCH (20:39)
[2024-08-20] MEDS: BisaCODYL 5 MG TABLET.DR PO SCH (20:40)
[2024-08-20] MEDS: doCUSate SODIUM 100 MG CAP PO SCH (20:40)
[2024-08-20 21:32] LABS: HEPATITIS B SURFACE ANTIBODY Positive (Reactive)
[2024-08-21] VITALS (21 sets, daily range): BP systolic 111–159; BP diastolic 50–78; PULSE 65–72; RESP 16–19; TEMP 97.6–98.3; O2SAT 91
[2024-08-21] MEDS: ASPIRIN 81 MG EC TAB PO SCH (09:00)
[2024-08-21] MEDS: PANTOPrazole 40 MG TAB DR PO SCH (09:00)
[2024-08-21] MEDS: Vitamin B Complex/Vit C/Folic Acid PO SCH (09:00)
[2024-08-21] MEDS: GABAPENTIN 300 MG CAPSULE PO SCH (09:00)
[2024-08-21] MEDS ORDERED: FOLATE 666 MCG PO SCH (09:00)
[2024-08-21] MEDS ORDERED: furoSEMIDE 80 MG TABLET PO SCH (09:00)
[2024-08-21] MEDS: LoSARTan 50 MG TABLET PO SCH (09:00)
[2024-08-21] MEDS: tamSULOsin HCL 0.4 MG CAP.ER.24H PO SCH (09:00)
[2024-08-21] MEDS: ceTIRIzine HCL 5 MG TABLET PO SCH (09:00)
--- NOTE | 2024-08-21 09:29 | PN ---
SUBJECTIVE: A 59-year-old male who has diabetes mellitus and hypertension. He has a history of known coronary artery disease. The patient recently admitted to outside hospital, underwent coronary catheterization with intervention. He presented with increasing shortness of breath and orthopnea. The patient has a history of noncompliance with his general medical care including his fluid restriction. The patient does continue dialysis on a Monday, Monday, Monday schedule and he is being seen as a followup visit for all of the above. REVIEW OF SYSTEMS: GENERAL: He is feeling much improved. HEENT: No change in vision. No change in hearing, no nasal discharge, no sore throat. CARDIOVASCULAR: There is no current chest pain or palpitations. PULMONARY: His shortness of breath is improved. GASTROINTESTINAL: The patient is tolerating a diet. MUSCULOSKELETAL: Complains of weakness. PHYSICAL EXAMINATION: VITAL SIGNS: Blood pressure is 111/50, pulse in the 70s. GENERAL: He is a chronically ill male, much older than appearing. HEENT: Head is atraumatic. Pupils equal, roving to light. Oropharynx is without exudate. Nares clear. NECK: There is no JVP. There is no thyromegaly, no mass. CARDIOVASCULAR: Regular. There is no S3, S4 gallop. LUNGS: Coarse with equal thoracic movement. ABDOMEN: Soft, nondistended, nontender. EXTREMITIES: Revealed no clubbing, no cyanosis. NEUROLOGIC: He is awake. He is alert. IMPRESSION: * Respiratory failure, volume overload. * Diabetes mellitus. * Hypertension. * Coronary artery disease. * End-stage renal disease. PLAN: The patient's pulmonary symptoms are much improved. The patient does continue with his dialysis on a Monday, Monday, Monday schedule. The patient has been counseled in regards to his general medical care including his fluid restriction. Once the patient is discharged, he will follow up at the dialysis unit. TID: [id number] RECEIPT: [id number]
--- NOTE | 2024-08-21 14:48 | DS ---
Discharge Summary Hospital Course Summary: Patient is 59 years old male with a past medical history of ESRD on dialysis Monday, left knee replacement, cardiac stents placement about three weeks ago on anticoagulation Brilinta, diabetes, hypertension, hyperlipidemia, IBS, neuropathy, who came to emergency department with shortness of breaths. Patient stated that he has not been able to sleep because of the shortness of breaths. Today in the morning he called dialysis site at 5:00 a.m. and ask for dialysis since he does not feel good and he can not breathe. Unfortunately the person at the dialysis site told him that they will not be able to take monitor 130 today afternoon in she advised patient to go to e mergency department. Patient was found to be volume overloaded and underwent dialysis with resolution of his symptoms. He desired to go home and was discharged in a stable medical condition [employer] Product Owner(s): Nephrology Procedure(s): Dialysis Assessment/Plan: ASSESSMENT: [ Acute hypoxic respiratory failure POA ESRD needing dialysis POA Fluid overload POA Acute systolic and diastolic heart failure 2D echo 50 to 55% stage II diastolic dysfunction 03/05/2024 POA Recent fall POA Iron-deficiency anemia POA Multifactorial anemia due to above POA Hyperlipidemia Uncontrolled diabetes mellitus type 2 with hypoglycemia POA Uncontrolled hypertension POA Recent cardiac stents placement on Brilinta three weeks ago POA Morbid obesity Glaucoma Neuropathy Irritable bowel syndrome Little urination due to ESRD dialysis ] PLAN: [ Admit to: Medical-surgical floor Consults: Sign Designer Antibiotics: Rocephin Tests: None at this moment NEURO: Minimize central acting medications as possible. Fall Precautions. Well lighted room through the day and minimize interruptions through the night to prevent acute delirium. PULMONARY: Chest x-ray showed infiltrate vascular congestion Supplemental 02 as needed BiPAP as necessary, for respiratory distress Titrate Fio2 to keep Spo2 > or = 90% DuoNebs and CPT as needed IS hourly while awake for pulmonary hygiene Out of bed to chair as tolerated VAP Bundle Maintain aspiration precautions at all times CARDIOVASCULAR: Most recent 2D echo 03/05/2024 showed 50 to 55% stage II diastolic dysfunction Follow hemodynamics. Vital signs per facility protocol GI & NUTRITION: Continue nutritional support Aspirations precautions Prokinetic agents and laxatives as needed KIDNEYS & ELECTROLYTES: Strict monitoring of intake and output Daily weights Avoid nephrotoxic agents Monitor electrolytes and replace as needed Goal urine output of 30mL/hr or 0.5mL/kg/hr Medications to be dosed according to renal function. Avoid contrast if possible ENDOCRINE: Maintain blood glucose between 100-180 at all times. Insulin sliding scale for blood glucose management Hypoglycemia and hyperglycemia protocol in place INFECTIOUS DISEASE: Trend temperature, WBC and procalcitonin level Follow cultures, deescalate antibiotics as soon as possible. Panculture if new onset fever HEMATOLOGY & COAGULATION: Monitor H&H. Keep Hgb > 7 Transfuse 1 unit of PRBC for Hgb < 7 Transfuse 1 pack of platelets of platelets < 20, 000 Watch for any signs and symptoms of bleeding SKIN: Pressure ulcer prevention per facility protocol Specialty mattress as needed Treatment plan discussed with patient and family at the bedside Medications to be reconciled once obtained by patient and/or family and available to be reconciled in computer p.r.n. medication for pain nausea and vomiting Questions were answered We will continue to monitor the patient closely Rn Placement for disposition Rehab: PT/OT GI: PPI DVT: SCD's Code Status: Full Resuscitation Disposition: TBD Prognosis: Guarded ] Home Medications: Reported Medications Sucroferric Oxyhydroxide (Velphoro) 500 Mg Iron Tab.chew, 3 TAB PO TID 08/19/24 Carvedilol (Carvedilol) 25 Mg Tablet, 1 TAB PO BID 08/19/24 Gabapentin (Neurontin) 300 Mg Capsule, 1 CAP PO BID 08/19/24 Aspirin (Aspirin EC) 81 Mg Tablet.dr, 1 TAB PO DAILY 08/19/24 Simethicone (Simethicone) 180 Mg Capsule, 180 MG PO BID PRN for GI GAS, CAP 08/19/24 Ticagrelor (Brilinta) 90 Mg Tablet, 1 TAB PO BID 08/19/24 Docusate Sodium (Docusate Sodium) 100 Mg Capsule, 100 MG PO BID, CAP 03/16/24 Hydralazine HCl (Hydralazine HCl) 50 Mg Tablet, 50 MG PO TID, TAB 03/16/24 Meclizine HCl (Meclizine HCl) 25 Mg Tablet, 25 MG PO HSPRN PRN for DIZZINESS, TAB 03/16/24 Omeprazole (Omeprazole) 40 Mg Capsule.dr, 40 MG PO AM, CAP 03/16/24 Cetirizine HCl (Cetirizine HCl) 10 Mg Tablet, 10 MG PO DAILY, TAB 03/16/24 Losartan Potassium (Losartan Potassium) 50 Mg Tablet, 50 MG PO DAILY, TAB 03/16/24 Alprazolam (Alprazolam) 0.5 Mg Tablet, 0.5 MG PO BID PRN for ANXIETY/AGITATION, TAB 03/16/24 Folic Acid/Vitamin B Comp W-C (Alize-Walt Tablet) 0.8 Mg Tablet, 0.8 MG PO DAILY, TAB 03/16/24 Ondansetron (Ondansetron Odt) 4 Mg Tab.rapdis, 4 MG PO BID for 3 Days, TAB 03/05/24 [Folate] No Conflict Check, 666 MCG PO DAILY 03/05/24 Tamsulosin HCl (Flomax) 0.4 Mg Cap.er.24h, 0.4 MG PO DAILY, CAPSULE.DR 03/05/24 Bisacodyl (Dulcolax 5Mg Tab) 5 Mg Tablet.dr, 5 MG PO HS, TAB 03/05/24 Atorvastatin Calcium (LIPITOR) 40 Mg Tablet, 40 MG PO HS, TAB 03/05/24 Furosemide (Furosemide) 80 Mg Tablet, 80 MG PO T,TH,S,S, TAB 08/28/23 Time spent arranging discharge: 31-60 minutes SIRIA BAUMAN MD Aug 21, 2024 14:48
[2024-08-21] MEDS: EPOETIN ALFA-EPBX (NON-ESRD) 10,000 UNIT/ML VIAL SQ SCH (16:26)
--- NOTE | 2024-08-21 16:57 | NUR ---
DISCHARGE PT PIV DC'D PT VERBALIZED UNDERSTANDING OF DISCHARGE INSTRUCTIONS PT GATHERED AND TOOK ALL BELONGINGS PT HAD NO FURTHER QUESTIONS AT TIME OF DISCHARGE
== END 2024-08-21 17:11 | disposition home or self-care (01) ==
LOC: EDH 10:17 → EDHIP 14:32 → 3AH 21:11
PROVIDERS: ADMIT Internal Medicine; ATTEND Internal Medicine
DX: J96.01 Acute respiratory failure with hypoxia (principal); Z20.822 Contact with and (suspected) exposure to COVID-19; I13.2 Hypertensive heart and chronic kidney disease with heart failure and with stage 5 chronic kidney disease, or end stage renal disease; E11.22 Type 2 diabetes mellitus with diabetic chronic kidney disease; N18.6 End stage renal disease; I50.41 Acute combined systolic (congestive) and diastolic (congestive) heart failure; E87.70 Fluid overload, unspecified; D63.8 Anemia in other chronic diseases classified elsewhere; E11.40 Type 2 diabetes mellitus with diabetic neuropathy, unspecified; E87.5 Hyperkalemia; E11.649 Type 2 diabetes mellitus with hypoglycemia without coma; E66.01 Morbid (severe) obesity due to excess calories; H40.9 Unspecified glaucoma; K58.9 Irritable bowel syndrome, unspecified; R91.8 Other nonspecific abnormal finding of lung field; I25.10 Atherosclerotic heart disease of native coronary artery without angina pectoris; Z91.199 Patient's noncompliance with other medical treatment and regimen due to unspecified reason; Z95.5 Presence of coronary angioplasty implant and graft; Z99.2 Dependence on renal dialysis; Z68.36 Body mass index [BMI] 36.0-36.9, adult
CPT/HCPCS: 96372 ×3; 96365; 96366; 96375 ×2; 84132; 99291; 93005; 80076 ×2; 84484 ×2; 80048 ×2; 83880; 85025 ×2; 85378; 85610; 85730; 87804 ×2; 82948 ×8; 86706; 87340; 86704; 87426; 36415 ×2; 71045; 78582; 90935 ×2; 83036; 82550; 83735; 84100; 82140; 83605; 81001; 94760; 84145; G0378 ×45; J3490 ×2; J0612; J1644 ×3; A9540; A9558; J1815 ×2; J0360; Q5106 ×2; G0257